=== PATIENT | female | born 1945 | race Caucasian/White ===

== ENCOUNTER 2016-12-05 18:41 | Emergency (ER) | payer OTHER, MEDICARE ==
[~2016-12-05 18:41] MED LIST: ADVAIR DISKU1 INH; ALPRAZOLAM0.25 MG PO; ASPIRIN325 MG PO; CALCIUM PO; CARVEDILOL12.5 MG PO; CARVEDILOL25 MG PO; CEFUROXIME AXE500 MG PO; CITALOPRAM HYDR40 MG PO; CYMBALTA60 MG PO; DIGOXIN0.125 MG PO; DILTIAZEM HCL180 M1 PO; ESTRADIOL0.5 MG PO; FLONASE AL50 MCG/ACT; FUROSEMIDE20 MG PO; HYDROXYZINE PAM25 MG PO; IPRATROPIUM BR0.02 % IN; MEDROXYPROGESTER5 MG PO; NAPROXEN250 MG PO; NORCO1 TA1 PO; OXYCODONE HCL5 MG PO; PERCOCET1 TA1 PO; PREDNISONE10 MG PO; PREDNISONE20 MG PO; PRILOSEC20 MG PO; PRINIVIL5 MG PO; PROAIR HFA IN; SIMVASTATIN40 MG PO; TRAMADOL HCL50 MG PO; VENTOLIN HFA IN; XARELTO10 MG PO; ZITHROMAX250 MG PO
--- NOTE | 2016-12-05 19:06 | ED CLINICAL REPORT ---
Clinical Report - Physicians/Mid Levels [facility] [address] [place] [address] 12/05/2016 18:40 Patient: SHANNON PATEL Time Seen: 18:51 Dec 05 2016. Arrived- By private vehicle. Historian- patient. CPT: ER phys charges level 3 (#[id number]). HISTORY OF PRESENT ILLNESS Chief Complaint: DYSPNEA and HISTORY OF CHRONIC OBSTRUCTIVE PULMONARY DISEASE. This started about 4 days RN INTAKE; Patient was told to be seen if she has a change in her sputum. and is still present. The dyspnea is described as moderate and is worsened by walking and exertion and is improved by rest. The patient has had a cough. She has had moderate amounts of green sputum. There has been a change from baseline. No wheezing, chest discomfort, calf pain, foot swelling or dizziness. She has had dyspnea on exertion (chronically). Similar symptoms previously: Several times, as bad. Seen in the ED and office. Diagnosis: chronic obstructive pulmonary disease. Recent medical care: Not recently seen/assessed. REVIEW OF SYSTEMS No muscle aches, eye irritation, nasal discharge, sinus drainage or nausea. No vomiting, abdominal pain, diarrhea, black stools or fainting episodes. No difficulty with urination, excessive urination, skin rash, enlarged lymph nodes or joint pain. The patient has had a mild sore throat (Transient). All systems otherwise negative, except as recorded above. PAST HISTORY Anxiety Reaction. Medication Refill. Bronchitis. Atrial Fibrillation. Hyperlipidemia. COPD - Chronic Obstructive Pulmonary Disease. Hypertension. Immunizations. --18:51 Honey Bailey R.N. ADDITIONAL SURGERIES: Dilatation & Curettage. Tonsillectomy. Chronic obstructive pulmonary disease. Medications: Azithromycin Oral. Advair Diskus Inhalation. Carvedilol Phosphate ER Oral. Citalopram Hydrobromide Oral. Digoxin Oral. DULoxetine HCl Oral. Estradiol Oral. HydrOXYzine HCl Oral. Lisinopril Oral. MedroxyPROGESTERone Acetate Oral. Omeprazole Oral. Percocet Oral. Tramadol HCL Oral. Ventolin HFA Inhalation. Xanax Oral. Xarelto Oral. Allergies: Shellfish-derived Products. Vicodin. SOCIAL HISTORY Former smoker. No alcohol use or drug use. ADDITIONAL NOTES The nursing notes have been reviewed. PHYSICAL EXAM Vital Signs: 12/05/2016 18:46 BP: 98/69. HR: 60. RR: 20. O2 saturation: 98%. Temp: 98.9 F. Pain level now: 0/10. Appearance: Alert. Eyes: Eyes normal inspection. ENT: Pharynx normal. Neck: Normal inspection. No jugular venous distention. CVS: Normal heart rate and rhythm. Heart sounds normal. Pulses normal. Respiratory: No respiratory distress. Moderately decreased air movement diffusely over both lungs. Abdomen: Soft and nontender. Back: Normal inspection. Skin: Skin warm. Normal skin color. No rash. Extremities: Extremities exhibit normal ROM. No lower extremity edema. Neuro: Oriented X 3. No motor deficit. No sensory deficit. Reflexes normal. PROGRESS AND PROCEDURES Course of Care: 19:01 12/05/16. Patient doesn't have any active wheezing. She is on prophylactic erythromycin and has developed green sputum on this regimen. Patient stable for discharge will change antibiotic and add steroids. She will follow up in a few days to evaluate her respiratory status. Patient/family counseled. Disposition: Discharged. Condition: stable. CLINICAL IMPRESSION Acute exacerbation of COPD. INSTRUCTIONS Warnings: Further evaluation is necessary. GENERAL WARNINGS: Return or contact your physician immediately if your condition worsens or changes unexpectedly, if not improving as expected, or if other problems arise. Your Current Medications: CONTINUE TAKING THE FOLLOWING MEDICATIONS: Advair Diskus Inhalation. Azithromycin Oral. Carvedilol Phosphate ER Oral. Citalopram Hydrobromide Oral. Digoxin Oral. DULoxetine HCl Oral. Estradiol Oral. HydrOXYzine HCl Oral. Lisinopril Oral. MedroxyPROGESTERone Acetate Oral. Omeprazole Oral. Percocet Oral. Tramadol HCL Oral. Ventolin HFA Inhalation. Xanax Oral. Xarelto Oral. Prescription Medications: Augmentin 875 mg: take 1 tablet orally every 12 hours for 7 days. Dispense fourteen (14). No refills. Substitution is permissible. Prednisone 30 mg a day for 3 days. Understanding of the discharge instructions verbalized by patient. Follow-up with: Porfirio Nguyen MD, [facility], , [facility], [address] [address], [place] [address] Follow up in three days. Call for an appointment. (Electronically signed by Cam Chopra MD 12/06/2016 15:50)
--- NOTE | 2016-12-05 19:06 | ED NURSING NOTES ---
Clinical Report - Nurses [facility] [address] [place] [address] 12/05/2016 18:40 Patient: SHANNON PATEL TRIAGE Acuity: LEVEL 3. Chief Complaint: SHORTNESS OF BREATH and COUGH. Alert. No acute distress. SEPSIS SCREEN: Sepsis Screen. Negative (no infection suspected/documented). --18:55 Honey Bailey R.N. 18:46 12/05/16. BP: 98/69. HR: 60. RR: 20. O2 saturation: 98% on room air. Temp: 98.9 F. Pain level now: 0/10. --18:55 Honey Bailey R.N. Weight: 86.1 kg stated. Height/Length: 62 inches Per Patient. BMI: 34.8. --18:51 Honey Bailey R.N. Medications Advair Diskus Inhalation. Carvedilol Phosphate ER Oral. Citalopram Hydrobromide Oral. Digoxin Oral. DULoxetine HCl Oral. Estradiol Oral. HydrOXYzine HCl Oral. Lisinopril Oral. MedroxyPROGESTERone Acetate Oral. Omeprazole Oral. Percocet Oral. Tramadol HCL Oral. Ventolin HFA Inhalation. Xanax Oral. Xarelto Oral. --18:51 Honey Bailey R.N. Azithromycin Oral. --18:55 Honey Bailey R.N. Medication/allergy information source: the patient. --18:55 Honey Bailey R.N. Allergies Vicodin. --18:51 Honey Bailey R.N. Shellfish-derived Products. --18:51 Honey Bailey R.N. History Arrived by private vehicle, and accompanied by daughter. Primary physician (alcon). Onset. (4 days ago). SOCIAL HX: Former smoker, end date 2006. No alcohol use or drug use. NUTRITIONAL RISK ASSESSMENT: The nutritional risk assessment revealed no deficiencies. FUNCTIONAL ASSESSMENT: Functional assessment: no impairments noted. LEARNING NEEDS ASSESSMENT: The learning needs assessment revealed no barriers. FALL RISK ASSESSMENT: Fall risk assessment completed. Risk factors identified include patient age greater than 65 years. Fall interventions initiated. Patient placed on stretcher. Side rails up x1. Brakes on Bed in low position. Patient visible from nurses' station. Call light in reach of patient. SKIN INTEGRITY ASSESSMENT: Skin integrity risk assessment completed. No skin integrity risk identified. --18:55 Honey Bailey R.N. PROBLEMS: Anxiety Reaction. Medication Refill. Bronchitis. Atrial Fibrillation. Hyperlipidemia. COPD - Chronic Obstructive Pulmonary Disease. Hypertension. Immunizations. --18:51 Honey Bailey R.N. ADDITIONAL SURGERIES: Dilatation & Curettage. Tonsillectomy. --18:51 Honey Bailey R.N. Assessment GENERAL / NEURO / PSYCH: Alert. Oriented X 4. Appears in no acute distress. [place] Coma Scale: 15- eyes open spontaneously (4); best verbal response- oriented x 4 (5); best motor response- obeys commands (6). Patient appears calm and cooperative. RESPIRATORY: Respirations not labored. CVS: Capillary refill less than 2 seconds. GI / : Abdomen nontender. SKIN: Mucous membranes are pink. Skin is warm and dry. --18:55 Honey Bailey R.N. Interventions ID band on patient. To treatment room. --18:55 Honey Bailey R.N. PHYSICAL ASSESSMENT 18:55 12/05/16. To room via wheelchair. GENERAL / NEURO / PSYCH: Alert. Oriented X 4. Appears in no acute distress. HEENT: Mucous membranes are pink. RESPIRATORY: No respiratory distress. Respirations not labored. CVS: Capillary refill less than 2 seconds. GI / : Abdomen soft and nontender. SKIN: Skin is warm and dry. Normal skin turgor. --18:55 Honey Bailey R.N. NURSING PROGRESS NOTES 18:56 12/05/16. Patient gowned. Two patient identifiers checked. Call light placed in reach. Side rails up x 2. Bed placed in lowest position. Brakes of bed on. Patient ready for evaluation- chart flagged. ED physician at the patient's bedside. --18:56 Honey Bailey R.N. 19:24 12/05/2016 Augmentin (Amoxicillin-Pot Clavulanate) PO 875 mg given. Allergies verified and confirmed 5 rights. --19:24 Honey Bailey R.N. DISPOSITION / DISCHARGE Departure time: 19:15 Dec 05 2016. Condition at departure: improved and stable. No learning barriers present. Discharge instructions provided and reviewed with the patient. Reviewed medication(s) side effects, precautions and dosing information. Prescription(s) given to the patient. Patient verbalized understanding. Written instructions provided in [place]. The patient was discharged by the physician. She was discharged home and accompanied by family. She left the Emergency Department ambulatory and via private vehicle. Family member driving. --19:30 Honey Bailey R.N. 19:29 12/05/16. BP: 113/77. HR: 88. RR: 18. O2 saturation: 95% on room air. Temp: 98.9 F (oral). Pain level now: 0/10. --19:30 Honey Bailey R.N. Locked/Released at 12/05/2016 19:30 by Honey Bailey R.N.
--- NOTE | 2016-12-05 19:06 | ED CLINICAL REPORT ---
Clinical Report - Physicians/Mid Levels [facility] [address] [place] [address] 12/05/2016 18:40 Patient: SHANNON PATEL Time Seen: 18:51 Dec 05 2016. Arrived- By private vehicle. Historian- patient. CPT: ER phys charges level 3 (#[id number]). HISTORY OF PRESENT ILLNESS Chief Complaint: DYSPNEA and HISTORY OF CHRONIC OBSTRUCTIVE PULMONARY DISEASE. 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 and is still present. The dyspnea is described as moderate and is worsened by walking and exertion and is improved by rest. The patient has had a cough. She has had moderate amounts of green sputum. There has been a change from baseline. No wheezing, chest discomfort, calf pain, foot swelling or dizziness. She has had dyspnea on exertion (chronically). Similar symptoms previously: Several times, as bad. Seen in the ED and office. Diagnosis: chronic obstructive pulmonary disease. Recent medical care: Not recently seen/assessed. REVIEW OF SYSTEMS No muscle aches, eye irritation, nasal discharge, sinus drainage or nausea. No vomiting, abdominal pain, diarrhea, black stools or fainting episodes. No difficulty with urination, excessive urination, skin rash, enlarged lymph nodes or joint pain. The patient has had a mild sore throat (Transient). All systems otherwise negative, except as recorded above. PAST HISTORY Anxiety Reaction. Medication Refill. Bronchitis. Atrial Fibrillation. Hyperlipidemia. COPD - Chronic Obstructive Pulmonary Disease. Hypertension. Immunizations. --18:51 Honey Bailey R.N. ADDITIONAL SURGERIES: Dilatation & Curettage. Tonsillectomy. Chronic obstructive pulmonary disease. Medications: Azithromycin Oral. Advair Diskus Inhalation. Carvedilol Phosphate ER Oral. Citalopram Hydrobromide Oral. Digoxin Oral. DULoxetine HCl Oral. Estradiol Oral. HydrOXYzine HCl Oral. Lisinopril Oral. MedroxyPROGESTERone Acetate Oral. Omeprazole Oral. Percocet Oral. Tramadol HCL Oral. Ventolin HFA Inhalation. Xanax Oral. Xarelto Oral. Allergies: Shellfish-derived Products. Vicodin. SOCIAL HISTORY Former smoker. No alcohol use or drug use. ADDITIONAL NOTES The nursing notes have been reviewed. PHYSICAL EXAM Vital Signs: 12/05/2016 18:46 BP: 98/69. HR: 60. RR: 20. O2 saturation: 98%. Temp: 98.9 F. Pain level now: 0/10. Appearance: Alert. Eyes: Eyes normal inspection. ENT: Pharynx normal. Neck: Normal inspection. No jugular venous distention. CVS: Normal heart rate and rhythm. Heart sounds normal. Pulses normal. Respiratory: No respiratory distress. Moderately decreased air movement diffusely over both lungs. Abdomen: Soft and nontender. Back: Normal inspection. Skin: Skin warm. Normal skin color. No rash. Extremities: Extremities exhibit normal ROM. No lower extremity edema. Neuro: Oriented X 3. No motor deficit. No sensory deficit. Reflexes normal. PROGRESS AND PROCEDURES Course of Care: 19:01 12/05/16. Patient doesn't have any active wheezing. She is on prophylactic erythromycin and has developed green sputum on this regimen. Patient stable for discharge will change antibiotic and add steroids. She will follow up in a few days to evaluate her respiratory status. Patient/family counseled. Disposition: Discharged. Condition: stable. CLINICAL IMPRESSION Acute exacerbation of COPD. INSTRUCTIONS Warnings: Further evaluation is necessary. GENERAL WARNINGS: Return or contact your physician immediately if your condition worsens or changes unexpectedly, if not improving as expected, or if other problems arise. Your Current Medications: CONTINUE TAKING THE FOLLOWING MEDICATIONS: Advair Diskus Inhalation. Azithromycin Oral. Carvedilol Phosphate ER Oral. Citalopram Hydrobromide Oral. Digoxin Oral. DULoxetine HCl Oral. Estradiol Oral. HydrOXYzine HCl Oral. Lisinopril Oral. MedroxyPROGESTERone Acetate Oral. Omeprazole Oral. Percocet Oral. Tramadol HCL Oral. Ventolin HFA Inhalation. Xanax Oral. Xarelto Oral. Prescription Medications: Augmentin 875 mg: take 1 tablet orally every 12 hours for 7 days. Dispense fourteen (14). No refills. Substitution is permissible. Prednisone 30 mg a day for 3 days. Understanding of the discharge instructions verbalized by patient. Follow-up with: Porfirio Nguyen MD, [facility], , [facility], [address], [place] [address] Follow up in three days. Call for an appointment. (Electronically signed by Cma Chopra MD 12/06/2016 15:50)
--- NOTE | 2016-12-06 15:50 | ED ORDER SUMMARY ---
..... Patient: SHANNON PATEL OrderSheet [facility] VisitID: [id number] [address] [place] [address] 71y, F Registration Date/Time: 12/05/2016 ORDER SHEET Weight: 86.1 kg (stated) Allergies: Vicodin, Shellfish-derived Products GENERAL ORDERS: MEDICATION ORDERS: Augmentin PO 875 mg (NOW) (19:12 12/05/2016 Rebel TAPIA) (Ack 19:15 MWinterer R.N.) (19:24 MWinterer R.N.) IV FLUIDS: ORDER SHEET NOTES: [Electronically signed by Honey Bailey R.N. (19:30 12/05/2016)] [Electronically signed by Cam Chopra MD (15:50 12/06/2016)] [Electronically locked/signed by Honey Bailey R.N. (19:30 12/05/2016)]
--- NOTE | 2016-12-06 15:50 | ED MAR SUMMARY ---
..... Medication Administration Record [address] [place] [address] Patient: SHANNON PATEL Visit ID: [id number] 71y, F Weight: 86.1 kg Height/Length: 62 in BMI: 34.8 ALLERGIES: Shellfish-derived Products, Vicodin Given 19:24 12/05/2016 Honey Bailey R.N. Medication Administered: AUGMENTIN [PO] (AMOXICILLIN-POT CLAVULANATE), Dose: 875 mg PO. Medication Ordered: Augmentin PO 875 mg (NOW).
--- NOTE | 2016-12-06 15:50 | ED DISCHARGE INSTRUCTIONS ---
Patient: SHANNON PATEL General Instructions [facility] VisitID: [id number] [place] [address] 71y, F Registration Date/Time: 12/05/2016 Acute exacerbation of COPD. INSTRUCTIONS Warnings: Further evaluation is necessary. GENERAL WARNINGS: Return or contact your physician immediately if your condition worsens or changes unexpectedly, if not improving as expected, or if other problems arise. Your Current Medications: CONTINUE TAKING THE FOLLOWING MEDICATIONS: Advair Diskus Inhalation. Azithromycin Oral. Carvedilol Phosphate ER Oral. Citalopram Hydrobromide Oral. Digoxin Oral. DULoxetine HCl Oral. Estradiol Oral. HydrOXYzine HCl Oral. Lisinopril Oral. MedroxyPROGESTERone Acetate Oral. Omeprazole Oral. Percocet Oral. Tramadol HCL Oral. Ventolin HFA Inhalation. Xanax Oral. Xarelto Oral. Prescription Medications: Augmentin 875 mg: take 1 tablet orally every 12 hours for 7 days. Dispense fourteen (14). No refills. Substitution is permissible. Prednisone 30 mg a day for 3 days. Understanding of the discharge instructions verbalized by patient. Follow-up with: Porfirio Nguyen MD, [facility], , [facility], [address] [place] [address] Follow up in three days. Call for an appointment. ADDITIONAL INFORMATION COPD Flare Both emphysema and chronic bronchitis are forms of chronic obstructive pulmonary disease (COPD). It is most often caused by many years of smoking tobacco. Many things can make your lung disease suddenly get worse. These causes include the common cold, pneumonia, acute bronchitis, missing doses of your regular breathing medicines, or being around smoke, dust, or other air pollutants. A COPD flare may last 7 to 14 days. Your doctor may prescribe medicineto relax your airways and prevent wheezing. Your doctor may also prescribe antibiotics if he or she thinks you havea bacterial infection. Prednisone can helpease inflammation in a severe attack. Home care Here are things you can do at home: Drink lots of water or other fluids (at least 10 glasses a day) during an attack. This will loosen lung secretions and make it easier to breathe. If you have heart or kidney disease, check with your doctor before you drink extra amounts of fluids. Take prescribed medicine exactly at the times advised. If you have a hand-held inhaler or aerosol breathing medicine, don't use it more than once every 4 hours, unless your doctor tells you to. If you were givenan antibiotic or prednisone, take all of the medicine even if you are feeling better after a few days. Don't smoke. Avoid being aroundthe smoke of others. If you were given an inhaler, use it exactly as directed. If you need to use it more often than prescribed, your condition may be getting worse. Call your doctor. Follow-up care Follow up with your health care provider.If you are 65 or older or have chronic asthma or COPD, you should get a single dose of the pneumococcal vaccine and aflu shot each year. You may need a second dose of the pneumococcal vaccine if you had the first dose at a younger age. Your health care provider will let you know if you need a second dose. For all other people, the usual dose for the pneumococcal vaccine is 1 or 2 shots. Yourprovider can discuss this with you. When to seek medical care Get prompt medical attention ifany of these occur: Increased wheezing or shortness of breath Need to use your inhalers more often than usual without relief Fever of 100.4F(38C) or higher, or as directed by your health care provider Coughing up lots of dark-colored or bloody sputum (mucus) Chest pain with each breath You do not start to improve within 24 hours You have been given the following additional information: COPD Flare (Electronically signed by Cam Chopra MD 12/06/2016 15:50)
--- NOTE | 2016-12-06 15:50 | ED MED RECONCILIATION SUMMARY ---
Patient: SHANNON PATEL Medication Reconciliation Report [facility] VisitID: [id number] [place] [address] 71y, F Registration Date/Time: 12/05/2016 Weight: 86.1 kg Height/Length: 62 in. BMI: 34.8 ALLERGIES: Shellfish-derived Products, Vicodin The patient's Home Medications are listed below: CONTINUE TAKING THE FOLLOWING MEDICATIONS: Advair Diskus Inhalation Azithromycin Oral Carvedilol Phosphate ER Oral Citalopram Hydrobromide Oral Digoxin Oral DULoxetine HCl Oral Estradiol Oral HydrOXYzine HCl Oral Lisinopril Oral MedroxyPROGESTERone Acetate Oral Omeprazole Oral Percocet Oral Tramadol HCL Oral Ventolin HFA Inhalation Xanax Oral Xarelto Oral The source(s) of the original Home Medication information: patient The following Medications were given to the patient in the Emergency Department: Augmentin [PO] PO 875 mg, administered: 12/05/2016 7:24:00 PM The following Medications were prescribed to the patient: Prednisone 30 mg a day for 3 days. -- Cam Chopra MD Augmentin 875 mg: take 1 tablet orally every 12 hours for 7 days. Dispense fourteen (14). No refills. Substitution is permissible. -- Cam Chopra MD
--- NOTE | 2016-12-06 15:50 | ED DISCHARGE INSTRUCTIONS ---
Patient: SHANNON PATEL General Instructions [facility] VisitID: [id number] [place] [address] 71y, F Registration Date/Time: 12/05/2016 Acute exacerbation of COPD. INSTRUCTIONS Warnings: Further evaluation is necessary. GENERAL WARNINGS: Return or contact your physician immediately if your condition worsens or changes unexpectedly, if not improving as expected, or if other problems arise. Your Current Medications: CONTINUE TAKING THE FOLLOWING MEDICATIONS: Advair Diskus Inhalation. Azithromycin Oral. Carvedilol Phosphate ER Oral. Citalopram Hydrobromide Oral. Digoxin Oral. DULoxetine HCl Oral. Estradiol Oral. HydrOXYzine HCl Oral. Lisinopril Oral. MedroxyPROGESTERone Acetate Oral. Omeprazole Oral. Percocet Oral. Tramadol HCL Oral. Ventolin HFA Inhalation. Xanax Oral. Xarelto Oral. Prescription Medications: Augmentin 875 mg: take 1 tablet orally every 12 hours for 7 days. Dispense fourteen (14). No refills. Substitution is permissible. Prednisone 30 mg a day for 3 days. Understanding of the discharge instructions verbalized by patient. Follow-up with: Porfirio Nguyen MD, [facility], , [facility], [address] [place] [address] Follow up in three days. Call for an appointment. ADDITIONAL INFORMATION COPD Flare Both emphysema and chronic bronchitis are forms of chronic obstructive pulmonary disease (COPD). It is most often caused by many years of smoking tobacco. Many things can make your lung disease suddenly get worse. These causes include the common cold, pneumonia, acute bronchitis, missing doses of your regular breathing medicines, or being around smoke, dust, or other air pollutants. A COPD flare may last 7 to 14 days. Your doctor may prescribe medicineto relax your airways and prevent wheezing. Your doctor may also prescribe antibiotics if he or she thinks you havea bacterial infection. Prednisone can helpease inflammation in a severe attack. Home care Here are things you can do at home: Drink lots of water or other fluids (at least 10 glasses a day) during an attack. This will loosen lung secretions and make it easier to breathe. If you have heart or kidney disease, check with your doctor before you drink extra amounts of fluids. Take prescribed medicine exactly at the times advised. If you have a hand-held inhaler or aerosol breathing medicine, don't use it more than once every 4 hours, unless your doctor tells you to. If you were givenan antibiotic or prednisone, take all of the medicine even if you are feeling better after a few days. Don't smoke. Avoid being aroundthe smoke of others. If you were given an inhaler, use it exactly as directed. If you need to use it more often than prescribed, your condition may be getting worse. Call your doctor. Follow-up care Follow up with your health care provider.If you are 65 or older or have chronic asthma or COPD, you should get a single dose of the pneumococcal vaccine and aflu shot each year. You may need a second dose of the pneumococcal vaccine if you had the first dose at a younger age. Your health care provider will let you know if you need a second dose. For all other people, the usual dose for the pneumococcal vaccine is 1 or 2 shots. Yourprovider can discuss this with you. When to seek medical care Get prompt medical attention ifany of these occur: Increased wheezing or shortness of breath Need to use your inhalers more often than usual without relief Fever of 100.4F(38C) or higher, or as directed by your health care provider Coughing up lots of dark-colored or bloody sputum (mucus) Chest pain with each breath You do not start to improve within 24 hours You have been given the following additional information: COPD Flare (Electronically signed by Cam Chopra MD 12/06/2016 15:50)
--- NOTE | 2016-12-06 15:50 | ED MED RECONCILIATION SUMMARY ---
Patient: SHANNON PATEL Medication Reconciliation Report [facility] VisitID: [id number] [place] [address] 71y, F Registration Date/Time: 12/05/2016 Weight: 86.1 kg Height/Length: 62 in. BMI: 34.8 ALLERGIES: Shellfish-derived Products, Vicodin The patient's Home Medications are listed below: CONTINUE TAKING THE FOLLOWING MEDICATIONS: Advair Diskus Inhalation Azithromycin Oral Carvedilol Phosphate ER Oral Citalopram Hydrobromide Oral Digoxin Oral DULoxetine HCl Oral Estradiol Oral HydrOXYzine HCl Oral Lisinopril Oral MedroxyPROGESTERone Acetate Oral Omeprazole Oral Percocet Oral Tramadol HCL Oral Ventolin HFA Inhalation Xanax Oral Xarelto Oral The source(s) of the original Home Medication information: patient The following Medications were given to the patient in the Emergency Department: Augmentin [PO] PO 875 mg, administered: 12/05/2016 7:24:00 PM The following Medications were prescribed to the patient: Prednisone 30 mg a day for 3 days. -- Cam Chopra MD Augmentin 875 mg: take 1 tablet orally every 12 hours for 7 days. Dispense fourteen (14). No refills. Substitution is permissible. -- Cam Chopra MD
--- NOTE | 2016-12-06 15:50 | ED MAR SUMMARY ---
..... Medication Administration Record [address] [place] [address] Patient: SHANNON PATEL Visit ID: [id number] 71y, F Weight: 86.1 kg Height/Length: 62 in BMI: 34.8 ALLERGIES: Shellfish-derived Products, Vicodin Given 19:24 12/05/2016 Honey Bailey R.N. Medication Administered: AUGMENTIN [PO] (AMOXICILLIN-POT CLAVULANATE), Dose: 875 mg PO. Medication Ordered: Augmentin PO 875 mg (NOW).
--- NOTE | 2016-12-06 15:50 | ED ORDER SUMMARY ---
..... Patient: SHANNON PATEL OrderSheet [facility] VisitID: [id number] [address] [place] [address] 71y, F Registration Date/Time: 12/05/2016 ORDER SHEET Weight: 86.1 kg (stated) Allergies: Vicodin, Shellfish-derived Products GENERAL ORDERS: MEDICATION ORDERS: Augmentin PO 875 mg (NOW) (19:12 12/05/2016 Rebel TAPIA) (Ack 19:15 MWinterer R.N.) (19:24 MWinterer R.N.) IV FLUIDS: ORDER SHEET NOTES: [Electronically signed by Honey Bailey R.N. (19:30 12/05/2016)] [Electronically signed by Cma Chopra MD (15:50 12/06/2016)] [Electronically locked/signed by Honey Bailey R.N. (19:30 12/05/2016)]
== END 2016-12-05 19:15 | disposition home or self-care (01) ==
LOC: ED SRH 18:41
DX: J44.1 Chronic obstructive pulmonary disease with (acute) exacerbation (principal); I10 Essential (primary) hypertension; E78.5 Hyperlipidemia, unspecified; Z79.51 Long term (current) use of inhaled steroids; Z79.2 Long term (current) use of antibiotics; Z79.891 Long term (current) use of opiate analgesic; Z88.5 Allergy status to narcotic agent; Z91.013 Allergy to seafood

== ENCOUNTER 2016-12-20 11:30 | Emergency (ER) | payer OTHER, MEDICARE ==
--- NOTE | 2016-12-20 12:30 | DIAGNOSTIC IMAGING REPORT ---
PROCEDURE: XR CHEST 2 VIEW INDICATION: CONGESTION TECHNIQUE: PA and lateral views. COMPARISON: Chest 10/30/2016 and 01/08/2015 FINDINGS: New left lower lobe infiltrate. Cardiomegaly. Pulmonary vasculature is normal. IMPRESSION: 1. New left lower lobe infiltrate.
--- NOTE | 2016-12-20 14:49 | ED ORDER SUMMARY ---
..... Patient: SHANNON PATEL OrderSheet [facility] VisitID: [id number] [place] [address] 71y, F Registration Date/Time: 12/20/2016 ORDER SHEET Weight: 84.8 kg (stated) Allergies: Shellfish-derived Products, Vicodin, Beta Adrenergic Blockers, Hydrocodone GENERAL ORDERS: Rapid Influenza Screen (Nasal Pharyngeal) (nasal) Urgent (11:55 12/20/2016 JBoardley R.N. per protocol) (Ack 11:57 LNations ER Tech1) (12:00 JBoardley R.N.) RT Evaluation Stat (11:56 12/20/2016 JBoardley R.N. per protocol) (Ack 11:57 LNations ER Tech1) (12:04 RMcCarson) Chest 2V Urgent (12:09 12/20/2016 JBoardley R.N. per protocol) (12:16 LNations ER Tech1) CBC w Diff Urgent (12:51 12/20/2016 Brandt TAPIA) (Ack 12:58 LNations ER Tech1) (13:30 EHassan R.N.) CMP Urgent (12:51 12/20/2016 Brandt TAPIA) (Ack 12:58 LNations ER Tech1) (13:30 EHassan R.N.) PCT (Procalcitonin) Urgent (12:51 12/20/2016 Brandt TAPIA) (Ack 12:58 LNations ER Tech1) (13:30 EHassan R.N.) MEDICATION ORDERS: DuoNeb Neb Tx 1 unit dose (NOW) (12:55 12/20/2016 Brandt TAPIA) (13:04 RMcCarson) IV FLUIDS: IV Saline Lock (12:51 12/20/2016 Brandt TAPIA) (Ack 13:09 JBoardley R.N.) (13:31 EHassan R.N.) Solu-MEDROL IV 125 mg (NOW) (12:55 12/20/2016 Brandt TAPIA) (Ack 13:09 Aleshia R.N.) (13:31 EHassan R.N.) ORDER SHEET NOTES: [Electronically signed by Boardley, Pierre R.N. (12/20/2016)] [Electronically signed by Aiden Cordero MD (12/20/2016)] [Electronically locked/signed by Pierre Anne R.N. (12/20/2016)]
--- NOTE | 2016-12-20 14:49 | ED CLINICAL REPORT ---
Clinical Report - Physicians/Mid Levels [facility] [address] [place] [address] 12/20/2016 11:32 Patient: SHANNON PATEL Time Seen: 12:22. Arrived- By private vehicle. Historian- patient. HISTORY OF PRESENT ILLNESS Chief Complaint: COUGH. This started about 2 1/2 weeks ago and is still present. It was gradual in onset. The illness is described as moderate. The patient has had a cough. She has had scant amounts of thick, green sputum. She has had mild difficulty breathing (chronically - she attributes this to her COPD). No chest discomfort or pain, fever, muscle aches or chills. Additional history - No known contact with a sick individual. Similar symptoms previously: Recent medical care: The patient was seen recently at this facility and another facility in a clinic. REVIEW OF SYSTEMS No chills, fever, sweats, abdominal pain or constipation. No diarrhea, nausea, vomiting or urinary problems. All systems otherwise negative, except as recorded above. PAST HISTORY PCP - Wendy. SOCIAL HISTORY Former smoker, end date 2006. FAMILY HISTORY Denies family medical history. ADDITIONAL NOTES The nursing notes have been reviewed. PHYSICAL EXAM Vital Signs: 12/20/2016 11:40 BP: 141/95. HR: 99. RR: 16. O2 saturation: 93%. Temp: 97.7 F. Have been reviewed. Appearance: Alert. Eyes: Pupils equal, round and reactive to light. ENT: Nose normal. Pharynx normal. Uvula midline. Neck: Normal inspection. Neck supple. CVS: Normal heart rate and rhythm. Heart sounds normal. Respiratory: Mild bilateral rhonchi present in the bases. Abdomen: Soft and nontender. No organomegaly. Back: Normal inspection. No CVA tenderness. Skin: Skin warm and dry. Normal skin color. Normal skin turgor. Extremities: Extremities exhibit normal ROM. No calf tenderness. No lower extremity edema. LABS, X-RAYS, AND EKG Chest X-ray: (IMPRESSION: 1. New left lower lobe infiltrate.). The X-rays were interpreted by the radiologist and contemporaneously by me. Laboratory Tests: CBC w Diff: (MIS: 12/20/2016 13:22) ( [facility] 12/20/2016 13:44) Final results Test Result Flag Units (Reference) WHITE BLOOD COUNT 8.0 K/uL (4.5-11.5) RED BLOOD COUNT 4.54 M/uL (4.00-5.20) HEMOGLOBIN 13.4 gm/dL (12.0-16.0) HEMATOCRIT 41.2 % (36.0-46.0) MEAN CELL VOLUME 91 fL (80-100) MEAN CORPUSCULAR HGB 30 pg (26-34) MEAN CORPUSCULAR HGB CONC 33 g/dL (31-37) RED CELL DISTRIBUTION WIDTH 13.6 % (11.6-14.8) PLATELET COUNT 286 K/uL (150-400) NEUTROPHIL % 64.5 % (50-75) LYMPH % 22.8 L % (25-40) MONO % 9.4 % (3-14) EOSINOPHIL % 2.8 % (0-4) BASOPHIL % 0.5 % (0-2) [id number]: (MIS: 12/20/2016 13:22) ( [facility] 12/20/2016 14:15) Final results Test Result Flag Units (Reference) PROCALCITONIN <0.5 ng/mL (0-0.5) PCT Concentration: Interpretation : Risk/option for action PCT <=0.5 ng/mL : Systemic : Low risk forinfection(sepsis): progression to severeis not likely. : systemic infection.Local bacterial : CAUTION-PCT levelsinfection is : below 0.5 ng/mL do notpossible. : exclude an infection,because localizedinfections (withoutsystemic signs) may beassociated with suchlow levels. If PCT ismeasured very earlyafter a bacterialchallenge (usually <6hours), these valuesmay still be low. Inthis case PCT shouldbe re-assessed 6-24hours later. PCT >0.5 and : Systemic infection: Moderate risk for<= 2 ng/mL : (sepsis) is : progression to severepossible, but : systemic infection.other conditions : The patient should beare known to : closely monitoredelevate PCT. : both clinically andby re-assessing PCTwithin 6-24 hours. PCT > 2 ng/mL : Systemic infection: High risk for(sepsis) is likely: progression to severeunless other : systemic infection.causes are known. : PCT >= 10 ng/mL : Important systemic: High likelihood ofinflammatory : severe sepsis orresponse, almost : septic shock.exclusively due to:severe bacterial :sepsis or septic :shock. : CMP: (MIS: 12/20/2016 13:22) ( MsgRcvd 12/20/2016 13:57) Final results Test Result Flag Units (Reference) GLUCOSE 99 mg/dL (70-110) BUN 9 mg/dL (7-18) CREATININE 0.7 mg/dL (0.6-1.3) Estimated GFR >60 mL/min Estimated GFR- >60 mL/min Note: Persistent reduction over 3 months in eGFR<60 mL/min/1.73 m2 defines CKD. Patients with eGFR values>=60 mL/min/1.73 m2 may also have CKD if evidence ofpersistent proteinuria. Additional information may be foundat www.kidney.org. SODIUM 138 mmol/L (136-145) POTASSIUM 4.0 mmol/L (3.5-5.1) CHLORIDE 101 mmol/L (98-107) CARBON DIOXIDE 29 mmol/L (21-32) CALCIUM 9.2 mg/dL (8.5-10.1) TOTAL PROTEIN 7.1 g/dL (6.4-8.2) ALBUMIN 3.6 g/dL (3.3-5.0) BILIRUBIN, TOTAL 0.6 mg/dL (0.0-1.0) ALKALINE PHOSPHATASE 59 U/L (46-116) AST (SGOT) 18 U/L (15-37) ALT (SGPT) 21 U/L (12-78) Rapid Influenza Screen: (MIS: 12/20/2016 11:50) ( MsgRcvd 12/20/2016 12:15) Final results SPECIMEN DESCRIPTION: NASAL Test Result Flag Units (Reference) RAPID INFLUENZA SCREEN DATE: 12/20/16 INFLUENZA A: NEGATIVE SCREEN FOR INFLUENZA A INFLUENZA B: NEGATIVE SCREEN FOR INFLUENZA B . PROGRESS AND PROCEDURES Patient/family counseled. Old medical records ordered. Disposition: Discharged. Condition: stable. CLINICAL IMPRESSION COPD. Pneumonia. Atypical presentation with a delayed diagnosis. INSTRUCTIONS Drink plenty of fluids. Warnings: Further evaluation is necessary. GENERAL WARNINGS: Return or contact your physician immediately if your condition worsens or changes unexpectedly, if not improving as expected, or if other problems arise. Prescription Medications: Zithromax 250 mg tablets: take 2 orally today, followed by 1 daily for the next 4 days. No refills. Substitution is permissible. Prednisone 10 mg tablets: take 4 orally every day for 5 days, then 2 every day for 3 days, then 1 every day for 2 days. Dispense twenty-eight (28). No refills. Understanding of the discharge instructions verbalized by patient. Follow-up with: Porfirio Nguyen MD, [facility], , [facility], [address] [facility] [address] [place], [place] [id number] Follow up in five days. Call for the next available appointment. (Electronically signed by Aiden Cordero MD 12/20/2016 19:26)
--- NOTE | 2016-12-20 14:49 | ED ORDER SUMMARY ---
..... Patient: SHANNON PATEL OrderSheet [facility] VisitID: [id number] [place] [address] 71y, F Registration Date/Time: 12/20/2016 ORDER SHEET Weight: 84.8 kg (stated) Allergies: Shellfish-derived Products, Vicodin, Beta Adrenergic Blockers, Hydrocodone GENERAL ORDERS: Rapid Influenza Screen (Nasal Pharyngeal) (nasal) Urgent (11:55 12/20/2016 JBoardley R.N. per protocol) (Ack 11:57 LNations ER Tech1) (12:00 JBoardley R.N.) RT Evaluation Stat (11:56 12/20/2016 JBoardley R.N. per protocol) (Ack 11:57 LNations ER Tech1) (12:04 RMcCarson) Chest 2V Urgent (12:09 12/20/2016 JBoardley R.N. per protocol) (12:16 LNations ER Tech1) CBC w Diff Urgent (12:51 12/20/2016 Brandt TAPIA) (Ack 12:58 LNations ER Tech1) (13:30 EHassan R.N.) CMP Urgent (12:51 12/20/2016 Brandt TAPIA) (Ack 12:58 LNations ER Tech1) (13:30 EHassan R.N.) PCT (Procalcitonin) Urgent (12:51 12/20/2016 Brandt TAPIA) (Ack 12:58 LNations ER Tech1) (13:30 EHassan R.N.) MEDICATION ORDERS: DuoNeb Neb Tx 1 unit dose (NOW) (12:55 12/20/2016 Brandt TAPIA) (13:04 RMcCarson) IV FLUIDS: IV Saline Lock (12:51 12/20/2016 Brandt TAPIA) (Ack 13:09 JBoardley R.N.) (13:31 EHassan R.N.) Solu-MEDROL IV 125 mg (NOW) (12:55 12/20/2016 Brandt TAPIA) (Ack 13:09 Aleshia R.N.) (13:31 EHassan R.N.) ORDER SHEET NOTES: [Electronically signed by Boardley, Pierre R.N. (12/20/2016)] [Electronically signed by Aiden Cordero MD (12/20/2016)] [Electronically locked/signed by Pierre Anne R.N. (12/20/2016)]
--- NOTE | 2016-12-20 14:49 | ED CLINICAL REPORT ---
Clinical Report - Physicians/Mid Levels [facility] [address] [place] [address] 12/20/2016 11:32 Patient: SHANNON PATEL Time Seen: 12:22. Arrived- By private vehicle. Historian- patient. HISTORY OF PRESENT ILLNESS Chief Complaint: COUGH. This started about 2 1/2 weeks ago and is still present. It was gradual in onset. The illness is described as moderate. The patient has had a cough. She has had scant amounts of thick, green sputum. She has had mild difficulty breathing (chronically - she attributes this to her COPD). No chest discomfort or pain, fever, muscle aches or chills. Additional history - No known contact with a sick individual. Similar symptoms previously: Recent medical care: The patient was seen recently at this facility and another facility in a clinic. REVIEW OF SYSTEMS No chills, fever, sweats, abdominal pain or constipation. No diarrhea, nausea, vomiting or urinary problems. All systems otherwise negative, except as recorded above. PAST HISTORY PCP - Wendy. SOCIAL HISTORY Former smoker, end date 2006. FAMILY HISTORY Denies family medical history. ADDITIONAL NOTES The nursing notes have been reviewed. PHYSICAL EXAM Vital Signs: 12/20/2016 11:40 BP: 141/95. HR: 99. RR: 16. O2 saturation: 93%. Temp: 97.7 F. Have been reviewed. Appearance: Alert. Eyes: Pupils equal, round and reactive to light. ENT: Nose normal. Pharynx normal. Uvula midline. Neck: Normal inspection. Neck supple. CVS: Normal heart rate and rhythm. Heart sounds normal. Respiratory: Mild bilateral rhonchi present in the bases. Abdomen: Soft and nontender. No organomegaly. Back: Normal inspection. No CVA tenderness. Skin: Skin warm and dry. Normal skin color. Normal skin turgor. Extremities: Extremities exhibit normal ROM. No calf tenderness. No lower extremity edema. LABS, X-RAYS, AND EKG Chest X-ray: (IMPRESSION: 1. New left lower lobe infiltrate.). The X-rays were interpreted by the radiologist and contemporaneously by me. Laboratory Tests: CBC w Diff: (MIS: 12/20/2016 13:22) ( [facility] 12/[place] 13:44) Final results Test Result Flag Units (Reference) WHITE BLOOD COUNT 8.0 K/uL (4.5-11.5) RED BLOOD COUNT 4.54 M/uL (4.00-5.20) HEMOGLOBIN 13.4 gm/dL (12.0-16.0) HEMATOCRIT 41.2 % (36.0-46.0) MEAN CELL VOLUME 91 fL (80-100) MEAN CORPUSCULAR HGB 30 pg (26-34) MEAN CORPUSCULAR HGB CONC 33 g/dL (31-37) RED CELL DISTRIBUTION WIDTH 13.6 % (11.6-14.8) PLATELET COUNT 286 K/uL (150-400) NEUTROPHIL % 64.5 % (50-75) LYMPH % 22.8 L % (25-40) MONO % 9.4 % (3-14) EOSINOPHIL % 2.8 % (0-4) BASOPHIL % 0.5 % (0-2) [id number]: (MIS: 12/20/2016 13:22) ( [facility] 12/20/2016 14:15) Final results Test Result Flag Units (Reference) PROCALCITONIN <0.5 ng/mL (0-0.5) PCT Concentration: Interpretation : Risk/option for action PCT <=0.5 ng/mL : Systemic : Low risk forinfection(sepsis): progression to severeis not likely. : systemic infection.Local bacterial : CAUTION-PCT levelsinfection is : below 0.5 ng/mL do notpossible. : exclude an infection,because localizedinfections (withoutsystemic signs) may beassociated with suchlow levels. If PCT ismeasured very earlyafter a bacterialchallenge (usually <6hours), these valuesmay still be low. Inthis case PCT shouldbe re-assessed 6-24hours later. PCT >0.5 and : Systemic infection: Moderate risk for<= 2 ng/mL : (sepsis) is : progression to severepossible, but : systemic infection.other conditions : The patient should beare known to : closely monitoredelevate PCT. : both clinically andby re-assessing PCTwithin 6-24 hours. PCT > 2 ng/mL : Systemic infection: High risk for(sepsis) is likely: progression to severeunless other : systemic infection.causes are known. : PCT >= 10 ng/mL : Important systemic: High likelihood ofinflammatory : severe sepsis orresponse, almost : septic shock.exclusively due to:severe bacterial :sepsis or septic :shock. : CMP: (MIS: 12/20/2016 13:22) ( MsgRcvd 12/20/2016 13:57) Final results Test Result Flag Units (Reference) GLUCOSE 99 mg/dL (70-110) BUN 9 mg/dL (7-18) CREATININE 0.7 mg/dL (0.6-1.3) Estimated GFR >60 mL/min Estimated GFR- >60 mL/min Note: Persistent reduction over 3 months in eGFR<60 mL/min/1.73 m2 defines CKD. Patients with eGFR values>=60 mL/min/1.73 m2 may also have CKD if evidence ofpersistent proteinuria. Additional information may be foundat www.kidney.org. SODIUM 138 mmol/L (136-145) POTASSIUM 4.0 mmol/L (3.5-5.1) CHLORIDE 101 mmol/L (98-107) CARBON DIOXIDE 29 mmol/L (21-32) CALCIUM 9.2 mg/dL (8.5-10.1) TOTAL PROTEIN 7.1 g/dL (6.4-8.2) ALBUMIN 3.6 g/dL (3.3-5.0) BILIRUBIN, TOTAL 0.6 mg/dL (0.0-1.0) ALKALINE PHOSPHATASE 59 U/L (46-116) AST (SGOT) 18 U/L (15-37) ALT (SGPT) 21 U/L (12-78) Rapid Influenza Screen: (MIS: 12/20/2016 11:50) ( MsgRcvd 12/20/2016 12:15) Final results SPECIMEN DESCRIPTION: NASAL Test Result Flag Units (Reference) RAPID INFLUENZA SCREEN DATE: 12/20/16 INFLUENZA A: NEGATIVE SCREEN FOR INFLUENZA A INFLUENZA B: NEGATIVE SCREEN FOR INFLUENZA B . PROGRESS AND PROCEDURES Patient/family counseled. Old medical records ordered. Disposition: Discharged. Condition: stable. CLINICAL IMPRESSION COPD. Pneumonia. Atypical presentation with a delayed diagnosis. INSTRUCTIONS Drink plenty of fluids. Warnings: Further evaluation is necessary. GENERAL WARNINGS: Return or contact your physician immediately if your condition worsens or changes unexpectedly, if not improving as expected, or if other problems arise. Prescription Medications: Zithromax 250 mg tablets: take 2 orally today, followed by 1 daily for the next 4 days. No refills. Substitution is permissible. Prednisone 10 mg tablets: take 4 orally every day for 5 days, then 2 every day for 3 days, then 1 every day for 2 days. Dispense twenty-eight (28). No refills. Understanding of the discharge instructions verbalized by patient. Follow-up with: Porfirio Nguyen MD, [facility], , [facility], [address] [facility] [address] [place], [place] [id number] Follow up in five days. Call for the next available appointment. (Electronically signed by Aiden Cordero MD 12/20/2016 19:26)
--- NOTE | 2016-12-20 14:49 | ED NURSING NOTES ---
Clinical Report - Nurses [facility] [address] [place] [address] 12/20/2016 11:32 Patient: SHANNON PATEL TRIAGE Triage time 11:40. Acuity: LEVEL 3. Chief Complaint: COUGH. 11:44 12/20/16. 11:44 12/20/16. Alert. ( Pt was seen at this ER on Nov. Pt was discharged home. Pt followed up with Dr. Nguyen on the NOV 30. Pt states this cough is not going away.). SEPSIS SCREEN: Sepsis Screen: negative. Negative (no infection suspected/documented). Heart rate greater than 90. No acute mental status change. DANIEL COMA SCORE: Daniel Coma Scale: 15- eyes open spontaneously (4); best verbal response- oriented x 4 (5); best motor response- obeys commands (6). --11:48 Pierre Anne R.N. 11:40 12/20/16. BP: 141/95. HR: 99. RR: 16. O2 saturation: 93% on room air. Temp: 97.7 F (oral). --11:48 Pierre Anne R.N. Weight: 84.8 kg stated. Height/Length: 62 inches Per Patient. BMI: 34.2. --11:46 Pierre Anne R.N. Medications Advair Diskus Inhalation (Aerosol Powder Breath Activated 250-50 mcg/dose) 1 puff, 2x a day. Azithromycin Oral (Tablet 500 mg) 1 tablet, Mon, Wed, Fri. Carvedilol Phosphate ER Oral (Capsule Extended Release 24 Hour 10 mg) 25mg, 2xday. Citalopram Hydrobromide Oral (Tablet 40 mg) 1 tablet. Digoxin Oral (Tablet 125 mcg) 1 tablet, daily. DULoxetine HCl Oral (Capsule Delayed Release Particles 60 mg) 1 capsule. Estradiol Oral (Tablet 1 mg) 1 tablet. HydrOXYzine HCl Oral (Tablet 25 mg) 1 tablet, 4x a day as needed. Lisinopril Oral (Tablet 5 mg) 1-1/2 tablets, at bedtime. MedroxyPROGESTERone Acetate Oral (Tablet 2.5 mg) 1 tablet, daily. Omeprazole Oral (Tablet Delayed Release 20 mg) 1 tablet, daily. Percocet Oral (Tablet 5-325 mg) 1-2, 3x a day as needed. Tramadol HCL Oral (Tablet 50 mg) 1-1/2 tablets, 3x a day. Ventolin HFA Inhalation (Aerosol Solution 108 (90 Base) mcg/act) 2 puff, q4hrs. Xanax Oral (Tablet 0.25 mg) 1 tablet, as needed. Xarelto Oral (Tablet 20 mg) 1 tablet. --11:45 Arcelia Tobias R.N. Atorvastatin Calcium Oral (Tablet 20 mg) 1 tablet, daily. --12:31 Arcelia Tobias R.N. Furosemide Oral (Tablet 20 mg) 1 tablet, daily. --12:31 Arcelia Tobias R.N. Fluticasone Furoate Nasal 50mcg, qd. --12:33 Arcelia Tobias R.N. Naproxen Oral (Tablet 500 mg) 1 tablet, 2x a day. --12:33 Arcelia Tobias R.N. The following entry was struck and corrected by Arcelia Tobias R.N., 12:30 (12/20/16) Reason for correction - other(correction). <<STRICKEN ENTRY-- Xanax Oral. --11:45 Pierre Anne R.N. --END STRIKE>> The following entry was struck and corrected by Arcelia Tobias R.N., 12:02 (12/20/16) Reason for correction - other(correction). <<STRICKEN ENTRY-- Xarelto Oral. --11:45 Pierre Anne R.N. --END STRIKE>> The following entry was struck and corrected by Arcelia Tobias R.N., 12:01 (12/20/16) Reason for correction - other(correction). <<STRICKEN ENTRY-- Ventolin HFA Inhalation. --11:45 Pierre Anne R.N. --END STRIKE>> The following entry was struck and corrected by Arcelia Tobias R.N., 12:01 (12/20/16) Reason for correction - other(correction). <<[facility] ENTRY-- Tramadol HCL Oral. --11:45 Pierre Anne R.N. --END STRIKE>> The following entry was struck and corrected by Arcelia Tobias R.N., 12:00 (12/20/16) Reason for correction - other(correction). <<[facility] ENTRY-- Percocet Oral. --11:45 Pierre Anne R.N. --END STRIKE>> The following entry was struck and corrected by Arcelia Tobias R.N., 11:59 (12/20/16) Reason for correction - other(correction). <<[facility] ENTRY-- Omeprazole Oral. --11:45 Pierre Anne R.N. --END STRIKE>> The following entry was struck and corrected by Arcelia Tobias R.N., 11:59 (12/20/16) Reason for correction - other(correction). <<[facility] ENTRY-- MedroxyPROGESTERone Acetate Oral. --11:45 Pierre Anne R.N. --END STRIKE>> The following entry was struck and corrected by Arcelia Tobias R.N., 11:59 (12/20/16) Reason for correction - other(correction). <<[facility] ENTRY-- Lisinopril Oral. --11:45 Pierre Anne R.N. --END STRIKE>> The following entry was struck and corrected by Arcelia Tobias R.N., 11:58 (12/20/16) Reason for correction - other(correction). <<[facility] ENTRY-- HydrOXYzine HCl Oral. --11:45 Pierre Anne R.N. --END STRIKE>> The following entry was struck and corrected by Arcelia Tobias R.N., 11:58 (12/20/16) Reason for correction - other(correction). <<[facility] ENTRY-- Estradiol Oral. --11:45 Pierre Anne R.N. --END STRIKE>> The following entry was struck and corrected by Arcelia Tobias R.N., 11:57 (12/20/16) Reason for correction - other(correction). <<[facility] ENTRY-- DULoxetine HCl Oral. --11:45 Pierre Anne R.N. --END STRIKE>> The following entry was struck and corrected by Arcelia Tobias R.N., 11:57 (12/20/16) Reason for correction - other(correction). <<STRICKEN ENTRY-- Digoxin Oral. --11:45 Pierre Anne R.N. --END STRIKE>> The following entry was struck and corrected by Arcelia Tobias R.N., 11:56 (12/20/16) Reason for correction - other(correction). <<[facility] ENTRY-- Citalopram Hydrobromide Oral. --11:45 Pierre Anne R.N. --END STRIKE>> The following entry was struck and corrected by Arcelia Tobias R.N., 11:55 (12/20/16) Reason for correction - other(correction). <<STRICKEN ENTRY-- Carvedilol Phosphate ER Oral. --11:45 Pierre Anne R.N. --END STRIKE>> The following entry was struck and corrected by Arcelia Tobias R.N., 11:54 (12/20/16) Reason for correction - other(correction). <<STRICKEN ENTRY-- Azithromycin Oral. --11:45 Pierre Anne R.N. --END STRIKE>> The following entry was struck and corrected by Arcelia Tobias R.N., 11:52 (12/20/16) Reason for correction - other(correction). <<STRICKEN ENTRY-- Advair Diskus Inhalation. --11:45 Pierre Anne R.N. --END STRIKE>>. Medication/allergy information source: the patient. --11:48 Pierre Anne R.N. Allergies Shellfish-derived Products. Vicodin. --11:45 Pierre Anne R.N. Beta Adrenergic Blockers. --12:04 Arcelia Tobias R.N. Hydrocodone. --12:05 Arcelia Tobias R.N. History Arrived by private vehicle. Historian: patient. Accompanied by family. Primary physician (ROHITH). 11:44 12/20/16. Onset. (NOV 30). Treatment [employer]: (Oxycodone, Hydroxyzine). PAST MEDICAL HX: Immunizations: up-to-date. SOCIAL HX: Former smoker (quit 10 years ago). No alcohol use or drug use. No infectious disease exposure. ABUSE ASSESSMENT: No report of abuse. FALL RISK ASSESSMENT: Fall risk assessment completed. No fall risk identified. NUTRITIONAL RISK ASSESSMENT: The nutritional risk assessment revealed no deficiencies. FUNCTIONAL ASSESSMENT: Functional assessment: no impairments noted. LEARNING NEEDS ASSESSMENT: The learning needs assessment revealed no barriers. SKIN INTEGRITY ASSESSMENT: Skin integrity risk assessment completed. No skin integrity risk identified. --11:48 Pierre Anne R.N. PROBLEMS: Anxiety Reaction. Medication Refill. Bronchitis. Atrial Fibrillation. Hyperlipidemia. COPD - Chronic Obstructive Pulmonary Disease. Hypertension. Immunizations. --11:45 Pierre Anne R.N. ADDITIONAL SURGERIES: Dilatation & Curettage. Tonsillectomy. --11:45 Pierre Anne R.N. Assessment 11:44 12/20/16. --11:48 Pierre Anne R.N. Interventions 11:44 12/20/16. 11:44 12/20/16. ID and allergy band on patient. To treatment room. --11:48 Pierre Anne R.N. PHYSICAL ASSESSMENT 11:44 12/20/16. To room via wheelchair. GENERAL / NEURO / PSYCH: Alert. Oriented X 4. RESPIRATORY: Mild respiratory distress. The patient can speak in full sentences. CVS: Capillary refill less than 2 seconds. SKIN: Skin is warm and dry. --11:44 Pierre Anne R.N. NURSING PROGRESS NOTES 11:49 12/20/16. The plan of care for this patient has been created. Pulse oximeter and NIBP monitor placed on patient; monitor alarms on. Patient gowned. Head of bed elevated. Two patient identifiers checked. Call light placed in reach. Side rails up x 2. Bed placed in lowest position. Brakes of bed on. Brakes of chair on. --11:49 Pierre Anne R.N. 11:49 12/20/16. Patient ready for evaluation- chart flagged and ED physician notified. --11:49 Pierre Anne R.N. 11:49 12/20/16. HR: 93. O2 saturation: 97% on room air. --11:49 Pierre Anne R.N. 11:49 12/20/16. --11:49 Pierre Anne R.N. 12:27 12/20/16. ( X-ray completed). --12:27 Pierre Anne R.N. 12:12/20/16. Patient and family informed about reason for wait and about plan of care. --12:27 Pierre Anne R.N. 12:27 12/20/16. Patient waiting for diagnostic study result. --12:27 Pierre Anne R.N. 13:04 12/20/2016 Duoneb (Ipratropium-Albuterol) Neb TX Nebulizer 1 unit dose given. --13:04 Kelly Osei 13:26 12/20/2016 Site #1 started via IV in the left antecubital space with an 20g angiocath; one attempt. Blood drawn: rainbow set. Labeled in the presence of the patient and sent to the lab. Saline lock flushed. --13:31 Antonella Casanova R.N. 13:31 12/20/2016 SOLU-MEDROL (MethylPREDNISolone Sodium Succ) IVP 125 mg given over 1 minute(s) via site #1. Allergies verified and confirmed 5 rights. IV patency established. IV site checked: no pain, redness, or swelling. IV flushed thoroughly pre- and post-medication administration. IVP given by RN. --13:31 Antonella Casanova R.N. Patient ID band checked for patient name, birthdate and medical record number: patient confirmed. Blood samples drawn from the left antecubital space by nurse per protocol ; labeled in presence of the patient and sent to lab. Reassurance given. The patient is calm. Overall patient status is the same- she states feels the same. ( Pt complaint of "back pain chronic" ok by Dr. Cordero for patient to take her own oxy 5mg. IV initiated, tolerated well). Patient identifiers checked. Call light placed in reach. Side rails up x 1. Bed placed in lowest position. Brakes of bed on. Brakes of chair on. --13:41 Antonella Casanova R.N. 13:31 12/20/16. BP: 135/95 (regular adult cuff) taken on the left arm, via an automated monitor, while sitting. HR: 88. RR: 18. O2 saturation: 98% on room air. Temp: 98.2 F (oral). Pain level now: 03/23. --13:41 Antonella Casanova R.N. 14:09 12/20/16. Reassessment after medication administered. Overall patient status is improved- she states feels better. --14:09 Pierre Anne R.N. 14:08 12/20/16. BP: 125/85. HR: 100. RR: 20. O2 saturation: 93% on room air. Pain level now: 02/21. --14:09 Pierre Anne R.N. DISPOSITION / DISCHARGE 15:13 12/20/16. Condition at departure: improved. No learning barriers present. Discharge instructions provided and reviewed with the patient. Reviewed medication(s) side effects and dosing information. Prescription(s) given to the patient. Patient verbalized understanding. The patient was discharged by the physician. She was discharged home and accompanied by family. She left the Emergency Department in a wheelchair and via private vehicle. Family member driving. FALL RISK ASSESSMENT: Fall risk assessment completed. No fall risk identified. --15:13 Arcelia Tobias R.N. 15:10 12/20/16. BP: 127/90. HR: 90. RR: 16. O2 saturation: 94%. Temp: 98.3 F. Pain level now: . --15:13 Arcelia Tobias R.N. Departure time: 15:14. --15:14 Arcelia Tobias R.N. 15:11 12/20/2016 Site #1 removed upon discharge. Catheter intact. --15:26 Pierre Anne R.N. Locked/Released at 12/20/2016 15:26 by Pierre Anne R.N.
--- NOTE | 2016-12-20 19:26 | ED DISCHARGE INSTRUCTIONS ---
Patient: SHANNON PATEL General Instructions [facility] VisitID: [id number] [place] [address] 71y, F Registration Date/Time: 12/20/2016 COPD. Pneumonia. Atypical presentation with a delayed diagnosis. INSTRUCTIONS Drink plenty of fluids. Warnings: Further evaluation is necessary. GENERAL WARNINGS: Return or contact your physician immediately if your condition worsens or changes unexpectedly, if not improving as expected, or if other problems arise. Prescription Medications: Zithromax 250 mg tablets: take 2 orally today, followed by 1 daily for the next 4 days. No refills. Substitution is permissible. Prednisone 10 mg tablets: take 4 orally every day for 5 days, then 2 every day for 3 days, then 1 every day for 2 days. Dispense twenty-eight (28). No refills. Understanding of the discharge instructions verbalized by patient. Follow-up with: Porfirio Nguyen MD, [facility], , [facility], [id number] [address] Follow up in five days. Call for the next available appointment. ADDITIONAL INFORMATION COPD Flare Both emphysema and chronic bronchitis are forms of chronic obstructive pulmonary disease (COPD). It is most often caused by many years of smoking tobacco. Many things can make your lung disease suddenly get worse. These causes include the common cold, pneumonia, acute bronchitis, missing doses of your regular breathing medicines, or being around smoke, dust, or other air pollutants. A COPD flare may last 7 to 14 days. Your doctor may prescribe medicineto relax your airways and prevent wheezing. Your doctor may also prescribe antibiotics if he or she thinks you havea bacterial infection. Prednisone can helpease inflammation in a severe attack. Home care Here are things you can do at home: Drink lots of water or other fluids (at least 10 glasses a day) during an attack. This will loosen lung secretions and make it easier to breathe. If you have heart or kidney disease, check with your doctor before you drink extra amounts of fluids. Take prescribed medicine exactly at the times advised. If you have a hand-held inhaler or aerosol breathing medicine, don't use it more than once every 4 hours, unless your doctor tells you to. If you were givenan antibiotic or prednisone, take all of the medicine even if you are feeling better after a few days. Don't smoke. Avoid being aroundthe smoke of others. If you were given an inhaler, use it exactly as directed. If you need to use it more often than prescribed, your condition may be getting worse. Call your doctor. Follow-up care Follow up with your health care provider.If you are 65 or older or have chronic asthma or COPD, you should get a single dose of the pneumococcal vaccine and aflu shot each year. You may need a second dose of the pneumococcal vaccine if you had the first dose at a younger age. Your health care provider will let you know if you need a second dose. For all other people, the usual dose for the pneumococcal vaccine is 1 or 2 shots. Yourprovider can discuss this with you. When to seek medical care Get prompt medical attention ifany of these occur: Increased wheezing or shortness of breath Need to use your inhalers more often than usual without relief Fever of 100.4F(38C) or higher, or as directed by your health care provider Coughing up lots of dark-colored or bloody sputum (mucus) Chest pain with each breath You do not start to improve within 24 hours Pneumonia (Adult) Pneumonia is an infection deep within the lung, in the small air sacs (alveoli). It may be due to a virus or bacteria and is usually treated with an antibiotic. Severe cases require treatment in the hospital. Milder cases can be treated at home. Symptoms usually start to improve during the first2 days of treatment. Home Care: Rest at home for the first 23 days or until you feel stronger. When resuming activity, dont let yourself become overly tired. Avoid exposure to cigarette smoke (yours or others). You may use acetaminophen (Tylenol) or ibuprofen (Motrin, Advil) to control fever or pain, unless another medicine was prescribed. [NOTE: If you have chronic liver or kidney disease or ever had a stomach ulcer or GI bleeding, talk with your doctor before using these medicines.] (Aspirin should never be used in anyone under 18 years of age who is ill with a fever. It may cause severe liver damage.) Your appetite may be poor so a light diet is fine. Keep well hydrated by drinking 68 glasses of fluids per day (water, sport drinks such as Gatorade, sodas without caffeine, juices, tea, soup, etc.). This will help loosen secretions in the lung, making it easier for you to cough up the phlegm (sputum). If you also have heart or kidney disease, check with your doctor before you drink extra amounts of fluids. Finish all antibiotic medicine prescribed, even if you are feeling better after a few days. Follow Up with your doctor in the next 23 days (or as advised) to be sure you are responding properly to the medicine. [NOTE: If you are age 65 or older, or if you have chronic lung disease (asthma, emphysema or COPD), we recommendthe pneumococcal vaccination and a yearlyinfluenzavaccination(flu-shot) every . Ask your doctor about this.] Get Prompt Medical Attention if any of the following occur: Not getting better within the first 48 hours of treatment Increasing shortness of breath or rapid breathing (over 25 breaths/minute) Coughing up blood or increasing chest pain with breathing Fever of 100.4F (38C) oral or higher, not better with fever medication Increasing weakness, dizziness or fainting Increasing thirst or dry mouth Sinus pain, headache or a stiff neck Chest pain not caused by coughing Azithromycin Oral tablet What is this medicine? AZITHROMYCIN (az ith atul MYE sin) is a macrolide antibiotic. It is used to treat or prevent certain kinds of bacterial infections. It will not work for colds, flu, or other viral infections. How should I use this medicine? Take this medicine by mouth with a full glass of water. Follow the directions on the prescription label. The tablets can be taken with food or on an empty stomach. If the medicine upsets your stomach, take it with food. Take your medicine at regular intervals. Do not take your medicine more often than directed. Take all of your medicine as directed even if you think your are better. Do not skip doses or stop your medicine early. Talk to your vegetable washing machine operator regarding the use of this medicine in children. Special care may be needed. What side effects may I notice from receiving this medicine? Side effects that you should report to your doctor or health vehicle care specialist as soon as possible: allergic reactions like skin rash, itching or hives, swelling of the face, lips, or tongue confusion, nightmares or hallucinations dark urine difficulty breathing hearing loss irregular heartbeat or chest pain pain or difficulty passing urine redness, blistering, peeling or loosening of the skin, including inside the mouth white patches or sores in the mouth yellowing of the eyes or skin Side effects that usually do not require medical attention (report to your doctor or health vehicle care specialist if they continue or are bothersome): diarrhea dizziness, drowsiness headache stomach upset or vomiting tooth discoloration vaginal irritation What may interact with this medicine? Do not take this medicine with any of the following medications: lincomycin This medicine may also interact with the following medications: amiodarone antacids cyclosporine digoxin magnesium nelfinavir phenytoin warfarin What if I miss a dose? If you miss a dose, take it as soon as you can. If it is almost time for your next dose, take only that dose. Do not take double or extra doses. Where should I keep my medicine? Keep out of the reach of children. Store at room temperature between 15 and 30 degrees C (59 and 86 degrees F). Throw away any unused medicine after the expiration date. What should I tell my health care provider before I take this medicine? They need to know if you have any of these conditions: kidney disease liver disease irregular heartbeat or heart disease an unusual or allergic reaction to azithromycin, erythromycin, other macrolide antibiotics, foods, dyes, or preservatives or trying to get breast-feeding What should I watch for while using this medicine? Tell your doctor or health vehicle care specialist if your symptoms do not improve. Do not treat diarrhea with over the counter products. Contact your doctor if you have diarrhea that lasts more than 2 days or if it is severe and watery. This medicine can make you more sensitive to the sun. Keep out of the sun. If you cannot avoid being in the sun, wear protective clothing and use sunscreen. Do not use sun lamps or tanning beds/booths. Prednisone Oral tablet What is this medicine? PREDNISONE (PRED ni sone) is a corticosteroid. It is commonly used to treat inflammation of the skin, joints, lungs, and other organs. Common conditions treated include asthma, allergies, and arthritis. It is also used for other conditions, such as blood disorders and diseases of the adrenal glands. How should I use this medicine? Take this medicine by mouth with a glass of water. Follow the directions on the prescription label. Take this medicine with food. If you are taking this medicine once a day, take it in the morning. Do not take more medicine than you are told to take. Do not suddenly stop taking your medicine because you may develop a severe reaction. Your doctor will tell you how much medicine to take. If your doctor wants you to stop the medicine, the dose may be slowly lowered over time to avoid any side effects. Talk to your vegetable washing machine operator regarding the use of this medicine in children. Special care may be needed. What side effects may I notice from receiving this medicine? Side effects that you should report to your doctor or health vehicle care specialist as soon as possible: allergic reactions like skin rash, itching or hives, swelling of the face, lips, or tongue changes in emotions or moods changes in vision depressed mood eye pain fever or chills, cough, sore throat, pain or difficulty passing urine increased thirst swelling of ankles, feet Side effects that usually do not require medical attention (report to your doctor or health vehicle care specialist if they continue or are bothersome): confusion, excitement, restlessness headache nausea, vomiting skin problems, acne, thin and shiny skin trouble sleeping weight gain What may interact with this medicine? Do not take this medicine with any of the following medications: metyrapone mifepristone This medicine may also interact with the following medications: aminoglutethimide amphotericin B aspirin and aspirin-like medicines barbiturates certain medicines for diabetes, like glipizide or glyburide cholestyramine cholinesterase inhibitors cyclosporine digoxin diuretics ephedrine female hormones, like estrogens and control pills isoniazid ketoconazole NSAIDS, medicines for pain and inflammation, like ibuprofen or naproxen phenytoin rifampin toxoids vaccines warfarin What if I miss a dose? If you miss a dose, take it as soon as you can. If it is almost time for your next dose, talk to your doctor or health vehicle care specialist. You may need to miss a dose or take an extra dose. Do not take double or extra doses without advice. Where should I keep my medicine? Keep out of the reach of children. Store at room temperature between 15 and 30 degrees C (59 and 86 degrees F). Protect from light. Keep container tightly closed. Throw away any unused medicine after the expiration date. What should I tell my health care provider before I take this medicine? They need to know if you have any of these conditions: Damien's syndrome diabetes glaucoma heart disease high blood pressure infection (especially a virus infection such as chickenpox, cold sores, or herpes) kidney disease liver disease mental illness myasthenia gravis osteoporosis seizures stomach or intestine problems thyroid disease an unusual or allergic reaction to lactose, prednisone, other medicines, foods, dyes, or preservatives or trying to get breast-feeding What should I watch for while using this medicine? Visit your doctor or health vehicle care specialist for regular checks on your progress. If you are taking this medicine over a prolonged period, carry an identification card with your name and address, the type and dose of your medicine, and your doctor's name and address. This medicine may increase your risk of getting an infection. Tell your doctor or health vehicle care specialist if you are around anyone with measles or chickenpox, or if you develop sores or blisters that do not heal properly. If you are going to have surgery, tell your doctor or health vehicle care specialist that you have taken this medicine within the last twelve months. Ask your doctor or health vehicle care specialist about your diet. You may need to lower the amount of salt you eat. This medicine may affect blood sugar levels. If you have diabetes, check with your doctor or health vehicle care specialist before you change your diet or the dose of your diabetic medicine. You have been given the following additional information: COPD Flare Pneumonia (Adult) Azithromycin Oral tablet Prednisone Oral tablet (Electronically signed by Aiden Cordero MD 12/20/2016 19:26)
--- NOTE | 2016-12-20 19:26 | ED MED RECONCILIATION SUMMARY ---
Patient: SHANNON PATEL Medication Reconciliation Report [facility] VisitID: [id number] [place] [address] 71y, F Registration Date/Time: 12/20/2016 Weight: 84.8 kg Height/Length: 62 in. BMI: 34.2 ALLERGIES: Beta Adrenergic Blockers, Hydrocodone, Shellfish-derived Products, Vicodin The patient's Home Medications are listed below: THE FOLLOWING MEDICATIONS NEED TO BE RECONCILED: Advair Diskus Inhalation (250-50 mcg/dose) 1 puff, 2x a day Atorvastatin Calcium Oral (20 mg) 1 tablet, daily Azithromycin Oral (500 mg) 1 tablet, Mon, Wed, Fri Carvedilol Phosphate ER Oral (10 mg) 25mg, 2xday Citalopram Hydrobromide Oral (40 mg) 1 tablet Digoxin Oral (125 mcg) 1 tablet, daily DULoxetine HCl Oral (60 mg) 1 capsule Estradiol Oral (1 mg) 1 tablet Fluticasone Furoate Nasal 50mcg, qd Furosemide Oral (20 mg) 1 tablet, daily HydrOXYzine HCl Oral (25 mg) 1 tablet, 4x a day Lisinopril Oral (5 mg) 1-1/2 tablets, at bedtime MedroxyPROGESTERone Acetate Oral (2.5 mg) 1 tablet, daily Naproxen Oral (500 mg) 1 tablet, 2x a day Omeprazole Oral (20 mg) 1 tablet, daily Percocet Oral (5-325 mg) 1-2, 3x a day Tramadol HCL Oral (50 mg) 1-1/2 tablets, 3x a day Ventolin HFA Inhalation (108 (90 Base) mcg/act) 2 puff, q4hrs Xanax Oral (0.25 mg) 1 tablet Xarelto Oral (20 mg) 1 tablet The source(s) of the original Home Medication information: patient The following Medications were given to the patient in the Emergency Department: Duoneb [Neb Tx] Neb TX 1 unit dose, administered: 12/20/2016 1:04:00 PM SOLU-MEDROL [IVP] IVP 125 mg, administered: 12/20/2016 1:31:00 PM The following Medications were prescribed to the patient: Zithromax 250 mg tablets: take 2 orally today, followed by 1 daily for the next 4 days. No refills. Substitution is permissible. -- Aiden Cordero MD Prednisone 10 mg tablets: take 4 orally every day for 5 days, then 2 every day for 3 days, then 1 every day for 2 days. Dispense twenty-eight (28). No refills. -- Aiden Cordero MD
--- NOTE | 2016-12-20 19:26 | ED MAR SUMMARY ---
..... Medication Administration Record [facility] [address] [place] [address] Patient: SHANNON PATEL Visit ID: [id number] 71y, F Weight: 84.8 kg Height/Length: 62 in BMI: 34.2 ALLERGIES: Shellfish-derived Products, Vicodin, Hydrocodone, Beta Adrenergic Blockers Given 13:04 12/20/2016 Kelly Osei, Medication Administered: DUONEB [NEB TX] (IPRATROPIUM-ALBUTEROL), Dose: 1 unit dose Nebulizer Neb TX. Medication Ordered: DuoNeb Neb Tx 1 unit dose (NOW). Given 13:31 12/20/2016 Antonella Casanova R.N. Medication Administered: SOLU-MEDROL [IVP] (METHYLPREDNISOLONE SODIUM SUCC), Dose: 125 mg IVP over 1 minute(s), Site: #1 left AC. Medication Ordered: Solu-MEDROL IV 125 mg (NOW).
--- NOTE | 2016-12-20 19:26 | ED DISCHARGE INSTRUCTIONS ---
Patient: SHANNON PATEL General Instructions [facility] VisitID: [id number] [place] [address] 71y, F Registration Date/Time: 12/20/2016 COPD. Pneumonia. Atypical presentation with a delayed diagnosis. INSTRUCTIONS Drink plenty of fluids. Warnings: Further evaluation is necessary. GENERAL WARNINGS: Return or contact your physician immediately if your condition worsens or changes unexpectedly, if not improving as expected, or if other problems arise. Prescription Medications: Zithromax 250 mg tablets: take 2 orally today, followed by 1 daily for the next 4 days. No refills. Substitution is permissible. Prednisone 10 mg tablets: take 4 orally every day for 5 days, then 2 every day for 3 days, then 1 every day for 2 days. Dispense twenty-eight (28). No refills. Understanding of the discharge instructions verbalized by patient. Follow-up with: Porfirio Nguyen MD, [facility], , [facility], [id number] [id number] Follow up in five days. Call for the next available appointment. ADDITIONAL INFORMATION COPD Flare Both emphysema and chronic bronchitis are forms of chronic obstructive pulmonary disease (COPD). It is most often caused by many years of smoking tobacco. Many things can make your lung disease suddenly get worse. These causes include the common cold, pneumonia, acute bronchitis, missing doses of your regular breathing medicines, or being around smoke, dust, or other air pollutants. A COPD flare may last 7 to 14 days. Your doctor may prescribe medicineto relax your airways and prevent wheezing. Your doctor may also prescribe antibiotics if he or she thinks you havea bacterial infection. Prednisone can helpease inflammation in a severe attack. Home care Here are things you can do at home: Drink lots of water or other fluids (at least 10 glasses a day) during an attack. This will loosen lung secretions and make it easier to breathe. If you have heart or kidney disease, check with your doctor before you drink extra amounts of fluids. Take prescribed medicine exactly at the times advised. If you have a hand-held inhaler or aerosol breathing medicine, don't use it more than once every 4 hours, unless your doctor tells you to. If you were givenan antibiotic or prednisone, take all of the medicine even if you are feeling better after a few days. Don't smoke. Avoid being aroundthe smoke of others. If you were given an inhaler, use it exactly as directed. If you need to use it more often than prescribed, your condition may be getting worse. Call your doctor. Follow-up care Follow up with your health care provider.If you are 65 or older or have chronic asthma or COPD, you should get a single dose of the pneumococcal vaccine and aflu shot each year. You may need a second dose of the pneumococcal vaccine if you had the first dose at a younger age. Your health care provider will let you know if you need a second dose. For all other people, the usual dose for the pneumococcal vaccine is 1 or 2 shots. Yourprovider can discuss this with you. When to seek medical care Get prompt medical attention ifany of these occur: Increased wheezing or shortness of breath Need to use your inhalers more often than usual without relief Fever of 100.4F(38C) or higher, or as directed by your health care provider Coughing up lots of dark-colored or bloody sputum (mucus) Chest pain with each breath You do not start to improve within 24 hours Pneumonia (Adult) Pneumonia is an infection deep within the lung, in the small air sacs (alveoli). It may be due to a virus or bacteria and is usually treated with an antibiotic. Severe cases require treatment in the hospital. Milder cases can be treated at home. Symptoms usually start to improve during the first2 days of treatment. Home Care: Rest at home for the first 23 days or until you feel stronger. When resuming activity, dont let yourself become overly tired. Avoid exposure to cigarette smoke (yours or others). You may use acetaminophen (Tylenol) or ibuprofen (Motrin, Advil) to control fever or pain, unless another medicine was prescribed. [NOTE: If you have chronic liver or kidney disease or ever had a stomach ulcer or GI bleeding, talk with your doctor before using these medicines.] (Aspirin should never be used in anyone under 18 years of age who is ill with a fever. It may cause severe liver damage.) Your appetite may be poor so a light diet is fine. Keep well hydrated by drinking 68 glasses of fluids per day (water, sport drinks such as Gatorade, sodas without caffeine, juices, tea, soup, etc.). This will help loosen secretions in the lung, making it easier for you to cough up the phlegm (sputum). If you also have heart or kidney disease, check with your doctor before you drink extra amounts of fluids. Finish all antibiotic medicine prescribed, even if you are feeling better after a few days. Follow Up with your doctor in the next 23 days (or as advised) to be sure you are responding properly to the medicine. [NOTE: If you are age 65 or older, or if you have chronic lung disease (asthma, emphysema or COPD), we recommendthe pneumococcal vaccination and a yearlyinfluenzavaccination(flu-shot) every . Ask your doctor about this.] Get Prompt Medical Attention if any of the following occur: Not getting better within the first 48 hours of treatment Increasing shortness of breath or rapid breathing (over 25 breaths/minute) Coughing up blood or increasing chest pain with breathing Fever of 100.4F (38C) oral or higher, not better with fever medication Increasing weakness, dizziness or fainting Increasing thirst or dry mouth Sinus pain, headache or a stiff neck Chest pain not caused by coughing Azithromycin Oral tablet What is this medicine? AZITHROMYCIN (az ith atul MYE sin) is a macrolide antibiotic. It is used to treat or prevent certain kinds of bacterial infections. It will not work for colds, flu, or other viral infections. How should I use this medicine? Take this medicine by mouth with a full glass of water. Follow the directions on the prescription label. The tablets can be taken with food or on an empty stomach. If the medicine upsets your stomach, take it with food. Take your medicine at regular intervals. Do not take your medicine more often than directed. Take all of your medicine as directed even if you think your are better. Do not skip doses or stop your medicine early. Talk to your linen grader regarding the use of this medicine in children. Special care may be needed. What side effects may I notice from receiving this medicine? Side effects that you should report to your doctor or health resident care director as soon as possible: allergic reactions like skin rash, itching or hives, swelling of the face, lips, or tongue confusion, nightmares or hallucinations dark urine difficulty breathing hearing loss irregular heartbeat or chest pain pain or difficulty passing urine redness, blistering, peeling or loosening of the skin, including inside the mouth white patches or sores in the mouth yellowing of the eyes or skin Side effects that usually do not require medical attention (report to your doctor or health resident care director if they continue or are bothersome): diarrhea dizziness, drowsiness headache stomach upset or vomiting tooth discoloration vaginal irritation What may interact with this medicine? Do not take this medicine with any of the following medications: lincomycin This medicine may also interact with the following medications: amiodarone antacids cyclosporine digoxin magnesium nelfinavir phenytoin warfarin What if I miss a dose? If you miss a dose, take it as soon as you can. If it is almost time for your next dose, take only that dose. Do not take double or extra doses. Where should I keep my medicine? Keep out of the reach of children. Store at room temperature between 15 and 30 degrees C (59 and 86 degrees F). Throw away any unused medicine after the expiration date. What should I tell my health care provider before I take this medicine? They need to know if you have any of these conditions: kidney disease liver disease irregular heartbeat or heart disease an unusual or allergic reaction to azithromycin, erythromycin, other macrolide antibiotics, foods, dyes, or preservatives or trying to get breast-feeding What should I watch for while using this medicine? Tell your doctor or health resident care director if your symptoms do not improve. Do not treat diarrhea with over the counter products. Contact your doctor if you have diarrhea that lasts more than 2 days or if it is severe and watery. This medicine can make you more sensitive to the sun. Keep out of the sun. If you cannot avoid being in the sun, wear protective clothing and use sunscreen. Do not use sun lamps or tanning beds/booths. Prednisone Oral tablet What is this medicine? PREDNISONE (PRED ni sone) is a corticosteroid. It is commonly used to treat inflammation of the skin, joints, lungs, and other organs. Common conditions treated include asthma, allergies, and arthritis. It is also used for other conditions, such as blood disorders and diseases of the adrenal glands. How should I use this medicine? Take this medicine by mouth with a glass of water. Follow the directions on the prescription label. Take this medicine with food. If you are taking this medicine once a day, take it in the morning. Do not take more medicine than you are told to take. Do not suddenly stop taking your medicine because you may develop a severe reaction. Your doctor will tell you how much medicine to take. If your doctor wants you to stop the medicine, the dose may be slowly lowered over time to avoid any side effects. Talk to your linen grader regarding the use of this medicine in children. Special care may be needed. What side effects may I notice from receiving this medicine? Side effects that you should report to your doctor or health resident care director as soon as possible: allergic reactions like skin rash, itching or hives, swelling of the face, lips, or tongue changes in emotions or moods changes in vision depressed mood eye pain fever or chills, cough, sore throat, pain or difficulty passing urine increased thirst swelling of ankles, feet Side effects that usually do not require medical attention (report to your doctor or health resident care director if they continue or are bothersome): confusion, excitement, restlessness headache nausea, vomiting skin problems, acne, thin and shiny skin trouble sleeping weight gain What may interact with this medicine? Do not take this medicine with any of the following medications: metyrapone mifepristone This medicine may also interact with the following medications: aminoglutethimide amphotericin B aspirin and aspirin-like medicines barbiturates certain medicines for diabetes, like glipizide or glyburide cholestyramine cholinesterase inhibitors cyclosporine digoxin diuretics ephedrine female hormones, like estrogens and control pills isoniazid ketoconazole NSAIDS, medicines for pain and inflammation, like ibuprofen or naproxen phenytoin rifampin toxoids vaccines warfarin What if I miss a dose? If you miss a dose, take it as soon as you can. If it is almost time for your next dose, talk to your doctor or health resident care director. You may need to miss a dose or take an extra dose. Do not take double or extra doses without advice. Where should I keep my medicine? Keep out of the reach of children. Store at room temperature between 15 and 30 degrees C (59 and 86 degrees F). Protect from light. Keep container tightly closed. Throw away any unused medicine after the expiration date. What should I tell my health care provider before I take this medicine? They need to know if you have any of these conditions: Damien's syndrome diabetes glaucoma heart disease high blood pressure infection (especially a virus infection such as chickenpox, cold sores, or herpes) kidney disease liver disease mental illness myasthenia gravis osteoporosis seizures stomach or intestine problems thyroid disease an unusual or allergic reaction to lactose, prednisone, other medicines, foods, dyes, or preservatives or trying to get breast-feeding What should I watch for while using this medicine? Visit your doctor or health resident care director for regular checks on your progress. If you are taking this medicine over a prolonged period, carry an identification card with your name and address, the type and dose of your medicine, and your doctor's name and address. This medicine may increase your risk of getting an infection. Tell your doctor or health resident care director if you are around anyone with measles or chickenpox, or if you develop sores or blisters that do not heal properly. If you are going to have surgery, tell your doctor or health resident care director that you have taken this medicine within the last twelve months. Ask your doctor or health resident care director about your diet. You may need to lower the amount of salt you eat. This medicine may affect blood sugar levels. If you have diabetes, check with your doctor or health resident care director before you change your diet or the dose of your diabetic medicine. You have been given the following additional information: COPD Flare Pneumonia (Adult) Azithromycin Oral tablet Prednisone Oral tablet (Electronically signed by Aiden Cordero MD 12/20/2016 19:26)
--- NOTE | 2016-12-20 19:26 | ED MAR SUMMARY ---
..... Medication Administration Record [facility] [address] [place] [address] Patient: SHANNON PATEL Visit ID: [id number] 71y, F Weight: 84.8 kg Height/Length: 62 in BMI: 34.2 ALLERGIES: Shellfish-derived Products, Vicodin, Hydrocodone, Beta Adrenergic Blockers Given 13:04 12/20/2016 Kelly Osei, Medication Administered: DUONEB [NEB TX] (IPRATROPIUM-ALBUTEROL), Dose: 1 unit dose Nebulizer Neb TX. Medication Ordered: DuoNeb Neb Tx 1 unit dose (NOW). Given 13:31 12/20/2016 Antonella Casanova R.N. Medication Administered: SOLU-MEDROL [IVP] (METHYLPREDNISOLONE SODIUM SUCC), Dose: 125 mg IVP over 1 minute(s), Site: #1 left AC. Medication Ordered: Solu-MEDROL IV 125 mg (NOW).
--- NOTE | 2016-12-20 19:26 | ED MED RECONCILIATION SUMMARY ---
Patient: SHANNON PATEL Medication Reconciliation Report [facility] VisitID: [id number] [place] [address] 71y, F Registration Date/Time: 12/20/2016 Weight: 84.8 kg Height/Length: 62 in. BMI: 34.2 ALLERGIES: Beta Adrenergic Blockers, Hydrocodone, Shellfish-derived Products, Vicodin The patient's Home Medications are listed below: THE FOLLOWING MEDICATIONS NEED TO BE RECONCILED: Advair Diskus Inhalation (250-50 mcg/dose) 1 puff, 2x a day Atorvastatin Calcium Oral (20 mg) 1 tablet, daily Azithromycin Oral (500 mg) 1 tablet, Mon, Wed, Fri Carvedilol Phosphate ER Oral (10 mg) 25mg, 2xday Citalopram Hydrobromide Oral (40 mg) 1 tablet Digoxin Oral (125 mcg) 1 tablet, daily DULoxetine HCl Oral (60 mg) 1 capsule Estradiol Oral (1 mg) 1 tablet Fluticasone Furoate Nasal 50mcg, qd Furosemide Oral (20 mg) 1 tablet, daily HydrOXYzine HCl Oral (25 mg) 1 tablet, 4x a day Lisinopril Oral (5 mg) 1-1/2 tablets, at bedtime MedroxyPROGESTERone Acetate Oral (2.5 mg) 1 tablet, daily Naproxen Oral (500 mg) 1 tablet, 2x a day Omeprazole Oral (20 mg) 1 tablet, daily Percocet Oral (5-325 mg) 1-2, 3x a day Tramadol HCL Oral (50 mg) 1-1/2 tablets, 3x a day Ventolin HFA Inhalation (108 (90 Base) mcg/act) 2 puff, q4hrs Xanax Oral (0.25 mg) 1 tablet Xarelto Oral (20 mg) 1 tablet The source(s) of the original Home Medication information: patient The following Medications were given to the patient in the Emergency Department: Duoneb [Neb Tx] Neb TX 1 unit dose, administered: 12/20/2016 1:04:00 PM SOLU-MEDROL [IVP] IVP 125 mg, administered: 12/20/2016 1:31:00 PM The following Medications were prescribed to the patient: Zithromax 250 mg tablets: take 2 orally today, followed by 1 daily for the next 4 days. No refills. Substitution is permissible. -- Aiden Cordero MD Prednisone 10 mg tablets: take 4 orally every day for 5 days, then 2 every day for 3 days, then 1 every day for 2 days. Dispense twenty-eight (28). No refills. -- Aiden Cordero MD
== END 2016-12-20 15:14 | disposition home or self-care (01) ==
LOC: ED SRH 11:30
DX: J18.9 Pneumonia, unspecified organism (principal); J44.9 Chronic obstructive pulmonary disease, unspecified; Z87.891 Personal history of nicotine dependence; Z79.899 Other long term (current) drug therapy; Z88.5 Allergy status to narcotic agent
CPT/HCPCS: 90100; 91400; 93004; 95059

== ENCOUNTER 2016-12-22 06:07 | Observation (INO) | payer OTHER, MEDICARE ==
[~2016-12-22] VITALS: Ht 157.5 cm; Wt 84.7 kg
--- NOTE | 2016-12-22 07:22 | DIAGNOSTIC IMAGING REPORT ---
PROCEDURE: XR CHEST 1 VIEW INDICATION: Pneumonia, follow-up TECHNIQUE: Portable AP view 06:42 a.m. COMPARISON: Chest x-ray 12/20/1978 and 10/30/2016.. FINDINGS: Slight progression of mild left basilar infiltrate. Right lung is clear. Mild to moderate cardiomegaly. Mediastinum and pulmonary vascularity are normal. Thorax is normal. IMPRESSION: 1. Slight progression of mild left basilar infiltrate 2. Stable cardiomegaly
--- NOTE | 2016-12-22 08:30 | ED CLINICAL REPORT ---
Clinical Report - Physicians/Mid Levels [facility] [address] [place] [address] 12/22/2016 6:08 Patient: SHANNON PATEL Time Seen: 06:26. Arrived- By ambulance. Historian- patient and EMS personnel. HISTORY OF PRESENT ILLNESS Chief Complaint: DYSPNEA and HISTORY OF CHRONIC OBSTRUCTIVE PULMONARY DISEASE. This started about 3 weeks ago and is still present. It was gradual in onset and has been constant and waxing/waning. The dyspnea is described as moderate. The patient has had yellow sputum, a cough and dyspnea on exertion. No chest pain, calf pain or foot swelling. Recent medical care: The patient was seen recently at this facility. Seen for similar symptoms. Evaluation/treatment: x-rays and medication prescribed. Diagnosis: chronic obstructive pulmonary disease and pneumonia. REVIEW OF SYSTEMS The patient has had mild abdominal pain ("Sore"). The pain is described as located in the upper abdomen. She has had moderate nausea (she attributes this to the Zithromax.). All systems otherwise negative, except as recorded above. PAST HISTORY Problems: Pneumonia. Anxiety Reaction. Medication Refill. Bronchitis. Atrial Fibrillation. Hyperlipidemia. COPD - Chronic Obstructive Pulmonary Disease. Hypertension. Additional Surgeries: Dilatation & Curettage. Tonsillectomy. Medications: PredniSONE Oral 40 mg, daily. Advair Diskus Inhalation (Aerosol Powder Breath Activated 250-50 mcg/dose) 1 puff, 2x a day. Atorvastatin Calcium Oral (Tablet 20 mg) 1 tablet, daily. Azithromycin Oral (Tablet 500 mg) 1 tablet, Mon, Wed, Fri. Carvedilol Phosphate ER Oral (Capsule Extended Release 24 Hour 10 mg) 25mg, 2xday. Citalopram Hydrobromide Oral (Tablet 40 mg) 1 tablet. Digoxin Oral (Tablet 125 mcg) 1 tablet, daily. DULoxetine HCl Oral (Capsule Delayed Release Particles 60 mg) 1 capsule. Estradiol Oral (Tablet 1 mg) 1 tablet. Fluticasone Furoate Nasal 50mcg, qd. Furosemide Oral (Tablet 20 mg) 1 tablet, daily. HydrOXYzine HCl Oral (Tablet 25 mg) 1 tablet, 4x a day as needed. Lisinopril Oral (Tablet 5 mg) 1-1/2 tablets, at bedtime. MedroxyPROGESTERone Acetate Oral (Tablet 2.5 mg) 1 tablet, daily. Naproxen Oral (Tablet 500 mg) 1 tablet, 2x a day. Omeprazole Oral (Tablet Delayed Release 20 mg) 1 tablet, daily. Percocet Oral (Tablet 5-325 mg) 1-2, 3x a day as needed. Tramadol HCL Oral (Tablet 50 mg) 1-1/2 tablets, 3x a day. Ventolin HFA Inhalation (Aerosol Solution 108 (90 Base) mcg/act) 2 puff, q4hrs. Xanax Oral (Tablet 0.25 mg) 1 tablet, as needed. Xarelto Oral (Tablet 20 mg) 1 tablet. Allergies: Beta Adrenergic Blockers. Hydrocodone. Shellfish-derived Products. Vicodin. SOCIAL HISTORY Former smoker. ADDITIONAL NOTES The nursing notes have been reviewed. PHYSICAL EXAM Vital Signs: 12/22/2016 06:12 BP: 161/98. HR: 87. RR: 18. O2 saturation: 96%. Temp: 98.7 F. Pain level now: 8/10. Have been reviewed. Appearance: Alert. Eyes: Pupils equal, round and reactive to light. ENT: Pharynx normal. Uvula midline. Neck: Normal inspection. No jugular venous distention. Neck supple. CVS: Abnormal rhythm, which is irregularly irregular. Respiratory: Prolonged expirations. Decreased air movement. Rhonchi present in the left lung base posteriorly. No wheezes. Abdomen: Soft and nontender. No organomegaly. Back: Normal inspection. Skin: Skin warm and dry. Normal skin color. Normal skin turgor. Extremities: Extremities exhibit normal ROM. No calf tenderness. No lower extremity edema. LABS, X-RAYS, AND EKG EKG: Rate: 90. Atrial fibrillation. Non-specific ST segment / T wave abnormalities. EKG unchanged when compared with prior EKG. (30 Oct 2016). Chest X-ray: (IMPRESSION: 1. Slight progression of mild left basilar infiltrate 2. Stable cardiomegaly). The X-rays were interpreted by the radiologist and contemporaneously by me. Laboratory Tests: CBC w Diff: (MIS: 12/24/2016 05:15) ( MsgRcvd 12/24/2016 06:15) Final results Test Result Flag Units (Reference) WHITE BLOOD COUNT 7.8 K/uL (4.5-11.5) RED BLOOD COUNT 4.39 M/uL (4.00-5.20) HEMOGLOBIN 13.1 gm/dL (12.0-16.0) HEMATOCRIT 40.0 % (36.0-46.0) MEAN CELL VOLUME 91 fL (80-100) MEAN CORPUSCULAR HGB 30 pg (26-34) MEAN CORPUSCULAR HGB CONC 33 g/dL (31-37) RED CELL DISTRIBUTION WIDTH 13.9 % (11.6-14.8) PLATELET COUNT 292 K/uL (150-400) NEUTROPHIL % 87.4 H % (50-75) LYMPH % 9.4 L % (25-40) MONO % 3.2 % (3-14) EOSINOPHIL % 0 % (0-4) BASOPHIL % 0 % (0-2) CMP: (MIS: 12/24/2016 05:15) ( MsgRcvd 12/24/2016 06:41) Final results Test Result Flag Units (Reference) GLUCOSE 143 H mg/dL (70-110) BUN 11 mg/dL (7-18) CREATININE 0.5 L mg/dL (0.6-1.3) Estimated GFR >60 mL/min Estimated GFR- >60 mL/min Note: Persistent reduction over 3 months in eGFR<60 mL/min/1.73 m2 defines CKD. Patients with eGFR values>=60 mL/min/1.73 m2 may also have CKD if evidence ofpersistent proteinuria. Additional information may be foundat [email or web address]. SODIUM 135 L mmol/L (136-145) POTASSIUM 4.3 mmol/L (3.5-5.1) CHLORIDE 104 mmol/L (98-107) CARBON DIOXIDE 24 mmol/L (21-32) CALCIUM 7.8 L mg/dL (8.5-10.1) TOTAL PROTEIN 5.8 L g/dL (6.4-8.2) ALBUMIN 2.8 L g/dL (3.3-5.0) BILIRUBIN, TOTAL 0.3 mg/dL (0.0-1.0) ALKALINE PHOSPHATASE 44 L U/L (46-116) AST (SGOT) 18 U/L (15-37) ALT (SGPT) 18 U/L (12-78) CBC w Diff: (MIS: 12/23/2016 05:05) ( MsgRcvd 12/23/2016 05:45) Final results Test Result Flag Units (Reference) WHITE BLOOD COUNT 5.4 # K/uL (4.5-11.5) RED BLOOD COUNT 4.30 M/uL (4.00-5.20) HEMOGLOBIN 13.0 gm/dL (12.0-16.0) HEMATOCRIT 39.3 % (36.0-46.0) MEAN CELL VOLUME 91 fL (80-100) MEAN CORPUSCULAR HGB 30 pg (26-34) MEAN CORPUSCULAR HGB CONC 33 g/dL (31-37) RED CELL DISTRIBUTION WIDTH 13.8 % (11.6-14.8) PLATELET COUNT 268 K/uL (150-400) NEUTROPHIL % 87.8 H % (50-75) LYMPH % 8.7 L % (25-40) MONO % 3.4 % (3-14) EOSINOPHIL % 0.1 % (0-4) BASOPHIL % 0 % (0-2) CMP: (MIS: 12/23/2016 05:05) ( MsgRcvd 12/23/2016 06:08) Final results Test Result Flag Units (Reference) GLUCOSE 130 H mg/dL (70-110) BUN 10 mg/dL (7-18) CREATININE 0.5 L mg/dL (0.6-1.3) Estimated GFR >60 mL/min Estimated GFR- >60 mL/min Note: Persistent reduction over 3 months in eGFR<60 mL/min/1.73 m2 defines CKD. Patients with eGFR values>=60 mL/min/1.73 m2 may also have CKD if evidence ofpersistent proteinuria. Additional information may be foundat [email or web address]. SODIUM 142 mmol/L (136-145) POTASSIUM 4.5 mmol/L (3.5-5.1) CHLORIDE 107 mmol/L (98-107) CARBON DIOXIDE 26 mmol/L (21-32) CALCIUM 7.8 L mg/dL (8.5-10.1) TOTAL PROTEIN 5.6 L g/dL (6.4-8.2) ALBUMIN 2.9 L g/dL (3.3-5.0) BILIRUBIN, TOTAL 0.2 mg/dL (0.0-1.0) ALKALINE PHOSPHATASE 47 U/L (46-116) AST (SGOT) 14 L U/L (15-37) ALT (SGPT) 24 U/L (12-78) UA-Culture if indicated: (MIS: 12/22/2016 08:40) ( MsgRcvd 12/22/2016 09:21) Final results Test Result Flag Units (Reference) URINE COLOR YELLOW URINE APPEARANCE CLEAR URINE GLUCOSE NEGATIVE (NEGATIVE) URINE BILIRUBIN NEGATIVE (NEGATIVE) URINE KETONE NEGATIVE (NEGATIVE) URINE SPECIFIC GRAVITY 1.015 (1.010-1.030) URINE PH 6.0 (5.0-8.0) URINE PROTEIN NEGATIVE (NEGATIVE) URINE UROBILINOGEN 0.2 EU/dL (0.2-1.0) URINE NITRITE NEGATIVE (NEGATIVE) URINE BLOOD TRACE-INTACT (NEGATIVE) URINE LEUK ESTERASE TRACE (NEGATIVE) URINE RBC NONE SEEN rbc/hpf (0-1) URINE WBC 5-10 wbc/hpf (0-1) URINE EPITHELIAL CELLS 1-3 EPI/hpf (0-5) URINE BACTERIA FEW (1+) (NONE SEEN) URINE COMMENT CULTURE INDICATED URINE CULTURES ARE SET-UP BASED ON THE FOLLOWING CRITERIA:POSITIVE NITRITEPOSITIVE LEUKOCYTE ESTERASEGREATER THAN 10 WHITE BLOOD CELLSMODERATE (2+) OR GREATER BACTERIA CBC w Diff: (MIS: 12/22/2016 07:04) ( MsgRcvd 12/22/2016 07:21) Final results Test Result Flag Units (Reference) WHITE BLOOD COUNT 11.7 H K/uL (4.5-11.5) RED BLOOD COUNT 4.69 M/uL (4.00-5.20) HEMOGLOBIN 14.1 gm/dL (12.0-16.0) HEMATOCRIT 42.6 % (36.0-46.0) MEAN CELL VOLUME 91 fL (80-100) MEAN CORPUSCULAR HGB 30 pg (26-34) MEAN CORPUSCULAR HGB CONC 33 g/dL (31-37) RED CELL DISTRIBUTION WIDTH 13.5 % (11.6-14.8) PLATELET COUNT 288 K/uL (150-400) NEUTROPHIL % 89.5 H % (50-75) LYMPH % 5.0 L % (25-40) MONO % 4.6 % (3-14) EOSINOPHIL % 0.8 % (0-4) BASOPHIL % 0.1 % (0-2) PT with INR: (MIS: 12/22/2016 07:04) ( MsgRcvd 12/22/2016 07:50) Final results Test Result Flag Units (Reference) INR 1.5 H (0.8-1.2) Low Intensity Therapy: INR 1.5-2.0 PT range 18.5-23.1Mod.Intensity Therapy: INR 2.0-3.0 PT range 23.1-31.5High Intensity Therapy: INR 2.5-3.5 PT range 27.4-35.5High Intensity Therapy 2: INR 3.0-4.0 PT range 31.5-39.3 APTT 34 SECONDS (24-34) [id number]: (MIS: 12/22/2016 07:04) ( MsgRcvd 12/22/2016 08:01) Final results Test Result Flag Units (Reference) PROCALCITONIN <0.5 ng/mL (0-0.5) PCT Concentration: Interpretation : Risk/option for action PCT <=0.5 ng/mL : Systemic : Low risk forinfection(sepsis): progression to severeis not likely. : systemic infection.Local bacterial : CAUTION-PCT levelsinfection is : below 0.5 ng/mL do notpossible. : exclude an infection,because localizedinfections (withoutsystemic signs) may beassociated with suchlow levels. If PCT ismeasured very earlyafter a bacterialchallenge (usually <6hours), these valuesmay still be low. Inthis case PCT shouldbe re-assessed 6-24hours later. PCT >0.5 and : Systemic infection: Moderate risk for<= 2 ng/mL : (sepsis) is : progression to severepossible, but : systemic infection.other conditions : The patient should beare known to : closely monitoredelevate PCT. : both clinically andby re-assessing PCTwithin 6-24 hours. PCT > 2 ng/mL : Systemic infection: High risk for(sepsis) is likely: progression to severeunless other : systemic infection.causes are known. : PCT >= 10 ng/mL : Important systemic: High likelihood ofinflammatory : severe sepsis orresponse, almost : septic shock.exclusively due to:severe bacterial :sepsis or septic :shock. : CMP: (MIS: 12/22/2016 07:04) ( MsgRcvd 12/22/2016 07:36) Final results Test Result Flag Units (Reference) GLUCOSE 91 mg/dL (70-110) BUN 15 mg/dL (7-18) CREATININE 0.6 mg/dL (0.6-1.3) Estimated GFR >60 mL/min Estimated GFR- >60 mL/min Note: Persistent reduction over 3 months in eGFR<60 mL/min/1.73 m2 defines CKD. Patients with eGFR values>=60 mL/min/1.73 m2 may also have CKD if evidence ofpersistent proteinuria. Additional information may be foundat [email or web address]. SODIUM 142 mmol/L (136-145) POTASSIUM 4.0 mmol/L (3.5-5.1) CHLORIDE 105 mmol/L (98-107) CARBON DIOXIDE 25 mmol/L (21-32) CALCIUM 8.3 L mg/dL (8.5-10.1) TOTAL PROTEIN 6.7 g/dL (6.4-8.2) ALBUMIN 3.3 g/dL (3.3-5.0) BILIRUBIN, TOTAL 0.3 mg/dL (0.0-1.0) ALKALINE PHOSPHATASE 50 U/L (46-116) AST (SGOT) 21 U/L (15-37) ALT (SGPT) 29 U/L (12-78) LIPASE 91 U/L (73-393) AMYLASE 22 L U/L (25-115) CPK 50 U/L (24-260) TROPONIN I <0.05 L ng/mL (0.00-1.5) TROPONIN REFERENCE RANGE:<0.1 NEGATIVE0.1-1.5 INDETERMINANT>1.5 POSITIVE DIGOXIN 0.5 L ng/mL (0.9-2.0) Blood Culture: (MIS: 12/23/2016 08:00) ( [facility] 12/29/2016 08:21) Final results Is patient on antibiotics? Y If so, list antibiotic: levaquin Test Result Flag Units (Reference) CULTURE, BLOOD NO GROWTH Blood Culture: (MIS: 12/23/2016 08:00) ( [facility] 12/29/2016 08:21) Final results Is patient on antibiotics? Y If so, list antibiotic: levaquin Test Result Flag Units (Reference) CULTURE, BLOOD NO GROWTH MRSA Screen: (MIS: 12/22/2016 16:45) ( [facility] 12/24/2016 11:45) Final results Is patient on antibiotics? Y If so, list antibiotic: LEVOQUIN Test Result Flag Units (Reference) MRSA SCREEN DATE: 12/24/16 MRSA ISOLATED?: NO MRSA ISOLATED MSSA ISOLATED?: NO MSSA (Methacilin Sensitive Staph aureus NOT Isolated) MRSA SCREEN ONLY Culture, Urine: (MIS: 12/22/2016 08:40) ( [facility] 12/24/2016 11:55) Final results Test Result Flag Units (Reference) CULTURE, URINE DATE: 12/24/16 NO SIGNIFICANT ISOLATION: NO SIGNIFICANT ISOLATION PRELIM REPORT: FINAL REPORT Blood Culture: (MIS: 12/22/2016 08:15) ( [facility] 12/27/2016 08:19) Final results Is patient on antibiotics? Y If so, list antibiotic: ZITHROMAX Test Result Flag Units (Reference) CULTURE, BLOOD NO GROWTH Blood Culture: (MIS: 12/22/2016 08:10) ( [facility] 12/25/2016 06:44) Final results Is patient on antibiotics? Y If so, list antibiotic: ZITHROMAX Test Result Flag Units (Reference) CULTURE, BLOOD CALLED TO: PREETI GAN 12/23 -- DATE: 12/25/16 DRAWN FROM:: PRELIM REPORT: FINAL REPORT Since this organism has been isolated from 1 blood culture set only, it may be a contaminant. Please call the lab if sensitivity is required. If a subsequent blood culture set grows this organism, the lab will perform sensitivity -- testing. Results called (FINAL) Person contacted: ACUTE CARE (PATIENT DISCHARGED BUT NO -- PRIMARY ON FILE) Was the result read back? Y DATE: 12/25/16 TIME: 629 -- By: DURAN -- Results called Person contacted: PREETI GAN AC Was the result read back? Y Date: 12/23/16 Time: 0735 -- By: EULOGIO -- ELECTRICAL SIGN WIRER ISOLATED ON DAY:: DAY 1 GROWTH: ISOLATED FROM AEROBIC BOTTLE * . PROGRESS AND PROCEDURES Discussed case with hospitalist, (Joni). Reviewed test results. Agreed upon decision to place in observation. Patient/family counseled. Old medical records reviewed. [facility] Disposition: Admitted. Observation. CLINICAL IMPRESSION Acute exacerbation of COPD. Pneumonia. (Electronically signed by Aiden Cordero MD 12/30/2016 9:13)
--- NOTE | 2016-12-22 08:30 | ED ORDER SUMMARY ---
..... Patient: SHANNON PATEL OrderSheet [facility] VisitID: [id number] [address] [place] [address] 71y, F Registration Date/Time: 12/22/2016 ORDER SHEET Weight: 79.3 kg (stated) Allergies: Beta Adrenergic Blockers, Hydrocodone, Shellfish-derived Products, Vicodin GENERAL ORDERS: Chest 1V Urgent (06:12/22/2016 Brandt TAPIA) (Ack 6:33 [place] Community Relations Representative) (6:45 Adele) Hazardous Substances Engineer (Continuous) (:12/22/2016 Brandt TAPIA) (Ack 6:33 Chemo ER Community Relations Representative) (7:13 JQuivey R.N.) CBC w Diff Urgent (:12/22/2016 Brandt TAPIA) (Ack 6:33 Chemo ER Community Relations Representative) (7:13 JQuivey R.N.) CMP Urgent (:12/22/2016 Brandt TAPIA) (Ack 6:33 [facility] Community Relations Representative) (7:14 JQuivey R.N.) UA-Culture if indicated Urgent (:12/22/2016 Brandt TPAIA) (Ack 6:33 Chemo ER Community Relations Representative) (9:11 MCook R.N.) Amylase Urgent (:12/22/2016 Brandt TAPIA) (Ack 6:33 Chemo ER Community Relations Representative) (7:14 JQuivey R.N.) Lipase Urgent (:12/22/2016 Brandt TAPIA) (Ack 6:33 [facility] Community Relations Representative) (7:14 JQuivey R.N.) CPK Urgent (:12/22/2016 Brandt TAIPA) (Ack 6:33 Chemo ER Community Relations Representative) (7:14 JQuivey R.N.) Troponin-I Urgent (:12/22/2016 Brandt TAPIA) (Ack 6:33 [facility] Community Relations Representative) (7:14 JQuivey R.N.) Oxygen (2 L/min) (NC) (:12/22/2016 Brandt TAPIA) (Ack 6:33 CHagerty ER Community Relations Representative) (7:13 JQuivey R.N.) Pulse oximeter (06:28 12/22/2016 Brandt TAPIA) (Ack 6:33 [facility] Community Relations Representative) (7:14 JQuivey R.N.) EKG - ER Stat (06:28 12/22/2016 Brandt TAPIA) (Ack 6:33 CHagerty ER Community Relations Representative) (6:43 CHategekimana) Digoxin Level Urgent (06:43 12/22/2016 Brandt TAPIA) (Ack 6:51 [facility] Community Relations Representative) (7:14 JQuivey R.N.) PT with INR Urgent (06:43 12/22/2016 Brandt TAPIA) (Ack 6:51 Chemo ER Community Relations Representative) (7:14 JQuivey R.N.) PTT Urgent (06:43 12/22/2016 Brandt TAPIA) (Ack 6:51 [facility] Community Relations Representative) (7:14 JQuivey R.N.) PCT (Procalcitonin) Urgent (07:17 12/22/2016 Brandt TAPIA) (7:25 LMuller) Blood Culture (Yes) (Zithromax) Urgent (07:50 12/22/2016 Brandt TAPIA) (Ack 7:56 LMuller) (8:17 LMuller) MEDICATION ORDERS: IV FLUIDS: IV Saline Lock (06:28 12/22/2016 Brandt TAPIA) (Ack 6:48 JQuivey R.N.) (7:13 JQuivey R.N.) Zofran IV 4 mg (NOW) (07:14 12/22/2016 SyedQuivey R.N. per protocol) (7:41 MCook R.N.) Solu-MEDROL IV 125 mg (NOW) (07:34 12/22/2016 Brandt TAPIA) (7:41 MCook R.N.) Levaquin IV 750 mg/150 mL (NOW) (07:53 12/22/2016 Brandt TAPIA) (9:33 MCook R.N.) ORDER SHEET NOTES: [Electronically signed by Garth Ellis R.N. (10:37 12/22/2016)] [Electronically signed by Aiden Cordero MD (09:13 12/30/2016)] [Electronically locked/signed by Garth Ellis R.N. (10:37 12/22/2016)]
--- NOTE | 2016-12-22 08:30 | ED ORDER SUMMARY ---
..... Patient: SHANNON PATEL OrderSheet [facility] VisitID: [id number] [address] [place] [address] 71y, F Registration Date/Time: 12/22/2016 ORDER SHEET Weight: 79.3 kg (stated) Allergies: Beta Adrenergic Blockers, Hydrocodone, Shellfish-derived Products, Vicodin GENERAL ORDERS: Chest 1V Urgent (06:12/22/2016 Brandt TAPIA) (Ack 6:33 [place] [facility] Drum Plater) (6:45 Adele) Bean Picker Machine Operator (Continuous) (:12/22/2016 Brandt TAPIA) (Ack 6:33 Chemo ER Drum Plater) (7:13 JQuivey R.N.) CBC w Diff Urgent (:12/22/2016 Brandt TAPIA) (Ack 6:33 Chemo ER Drum Plater) (7:13 JQuivey R.N.) CMP Urgent (:12/22/2016 Brandt TAPIA) (Ack 6:33 [place] ER Drum Plater) (7:14 JQuivey R.N.) UA-Culture if indicated Urgent (:12/22/2016 Brandt ATPIA) (Ack 6:33 Chemo ER Drum Plater) (9:11 MCook R.N.) Amylase Urgent (:12/22/2016 Brandt TAPIA) (Ack 6:33 Chemo ER Drum Plater) (7:14 JQuivey R.N.) Lipase Urgent (:12/22/2016 Brandt TAPIA) (Ack 6:33 [place] ER Drum Plater) (7:14 JQuivey R.N.) CPK Urgent (:12/22/2016 Brandt TAPIA) (Ack 6:33 Chemo ER Drum Plater) (7:14 JQuivey R.N.) Troponin-I Urgent (:12/22/2016 Brandt TAPIA) (Ack 6:33 [place] ER Drum Plater) (7:14 JQuivey R.N.) Oxygen (2 L/min) (NC) (:12/22/2016 Brandt TAPIA) (Ack 6:33 CHagerty ER Drum Plater) (7:13 JQuivey R.N.) Pulse oximeter (06:28 12/22/2016 Brandt TAPIA) (Ack 6:33 CHagerty ER Drum Plater) (7:14 JQuivey R.N.) EKG - ER Stat (06:28 12/22/2016 Brandt TAPIA) (Ack 6:33 CHagerty ER Drum Plater) (6:43 CHategekimana) Digoxin Level Urgent (06:43 12/22/2016 Brandt TAPIA) (Ack 6:51 [place] ER Drum Plater) (7:14 JQuivey R.N.) PT with INR Urgent (06:43 12/22/2016 Brandt TAPIA) (Ack 6:51 Chemo ER Drum Plater) (7:14 JQuivey R.N.) PTT Urgent (06:43 12/22/2016 Brandt TAPIA) (Ack 6:51 [place] ER Drum Plater) (7:14 JQuivey R.N.) PCT (Procalcitonin) Urgent (07:17 12/22/2016 Brandt TAPIA) (7:25 LMuller) Blood Culture (Yes) (Zithromax) Urgent (07:50 12/22/2016 Brandt TAPIA) (Ack 7:56 LMuller) (8:17 LMuller) MEDICATION ORDERS: IV FLUIDS: IV Saline Lock (06:28 12/22/2016 Brandt TAPIA) (Ack 6:48 JQuivey R.N.) (7:13 JQuivey R.N.) Zofran IV 4 mg (NOW) (07:14 12/22/2016 SyedQuivey R.N. per protocol) (7:41 MCook R.N.) Solu-MEDROL IV 125 mg (NOW) (07:34 12/22/2016 Brandt TAPIA) (7:41 MCook R.N.) Levaquin IV 750 mg/150 mL (NOW) (07:53 12/22/2016 Brandt TAPIA) (9:33 MCook R.N.) ORDER SHEET NOTES: [Electronically signed by Garth Ellis R.N. (10:37 12/22/2016)] [Electronically signed by Aiden Cordero MD (09:13 12/30/2016)] [Electronically locked/signed by Garth Ellis R.N. (10:37 12/22/2016)]
--- NOTE | 2016-12-22 08:30 | ED NURSING NOTES ---
Clinical Report - Nurses [facility] [address] [place] [address] 12/22/2016 6:08 Patient: SHANNON PATEL TRIAGE Triage time 06:12. Acuity: LEVEL 3. Chief Complaint: COUGH, NAUSEA and ABDOMINAL PAIN. 06:21. Alert. SEPSIS SCREEN: Sepsis Screen. Negative (no infection suspected/documented). --06:21 Epi Ashby R.N. 06:12 12/22/16. BP: 161/98. HR: 87. RR: 18. O2 saturation: 96% on room air. Temp: 98.7 F (oral). Pain level now: 06/23. --06:21 Epi Ashby R.N. Weight: 79.3 kg stated. Height/Length: 64 inches Per Patient. BMI: 30. --06:18 Epi Ashby R.N. Medications Advair Diskus Inhalation (Aerosol Powder Breath Activated 250-50 mcg/dose) 1 puff, 2x a day. Atorvastatin Calcium Oral (Tablet 20 mg) 1 tablet, daily. Azithromycin Oral (Tablet 500 mg) 1 tablet, Mon, Wed, Fri. Carvedilol Phosphate ER Oral (Capsule Extended Release 24 Hour 10 mg) 25mg, 2xday. Citalopram Hydrobromide Oral (Tablet 40 mg) 1 tablet. Digoxin Oral (Tablet 125 mcg) 1 tablet, daily. DULoxetine HCl Oral (Capsule Delayed Release Particles 60 mg) 1 capsule. Estradiol Oral (Tablet 1 mg) 1 tablet. Fluticasone Furoate Nasal 50mcg, qd. Furosemide Oral (Tablet 20 mg) 1 tablet, daily. HydrOXYzine HCl Oral (Tablet 25 mg) 1 tablet, 4x a day as needed. Lisinopril Oral (Tablet 5 mg) 1-1/2 tablets, at bedtime. MedroxyPROGESTERone Acetate Oral (Tablet 2.5 mg) 1 tablet, daily. Naproxen Oral (Tablet 500 mg) 1 tablet, 2x a day. Omeprazole Oral (Tablet Delayed Release 20 mg) 1 tablet, daily. Percocet Oral (Tablet 5-325 mg) 1-2, 3x a day as needed. Tramadol HCL Oral (Tablet 50 mg) 1-1/2 tablets, 3x a day. Ventolin HFA Inhalation (Aerosol Solution 108 (90 Base) mcg/act) 2 puff, q4hrs. Xanax Oral (Tablet 0.25 mg) 1 tablet, as needed. Xarelto Oral (Tablet 20 mg) 1 tablet. --06:17 Epi Ashby R.N. PredniSONE Oral 40 mg, daily. --06:17 Epi Ashby R.N. Medication/allergy information source: the patient. --06:21 Epi Ashby R.N. Allergies Beta Adrenergic Blockers. Hydrocodone. Shellfish-derived Products. Vicodin. --06:17 Epi Ashby R.N. History Arrived by EMS, and unaccompanied. Primary physician (Wendy). This started today. Onset. (at 0130). ( Patient was seen here on 12-05-16,and 12-20-16, pt thinks her nausea is caused by the Zithromax). Treatment WINDOW SHADE ESTIMATOR: (Prednisone , Zithromax). PAST MEDICAL HX: The patient is post-menopausal. SOCIAL HX: Former smoker, end date 2006. No alcohol use or drug use. No infectious disease exposure. ABUSE ASSESSMENT: No report of abuse. FALL RISK ASSESSMENT: Fall risk assessment completed. No fall risk identified. NUTRITIONAL RISK ASSESSMENT: The nutritional risk assessment revealed no deficiencies. FUNCTIONAL ASSESSMENT: Functional assessment: no impairments noted. LEARNING NEEDS ASSESSMENT: The learning needs assessment revealed no barriers. SKIN INTEGRITY ASSESSMENT: Skin integrity risk assessment completed. No skin integrity risk identified. --06:21 Epi Ashby R.N. PROBLEMS: Pneumonia. Anxiety Reaction. Medication Refill. Bronchitis. Atrial Fibrillation. Hyperlipidemia. COPD - Chronic Obstructive Pulmonary Disease. Hypertension. --06:18 Epi Ashby R.N. ADDITIONAL SURGERIES: Dilatation & Curettage. Tonsillectomy. --06:18 Epi Ashby R.N. Interventions ID band on patient. To treatment room. --06:21 Epi Ashby R.N. PHYSICAL ASSESSMENT 06:21. To room via stretcher. Patient gowned. GENERAL / NEURO / PSYCH: Alert. Oriented X 4. HEENT: Mucous membranes are pink. RESPIRATORY: Respirations not labored. SKIN: Skin intact. Skin is warm and dry. Normal skin turgor. --06:21 Epi Ashby R.N. NURSING PROGRESS NOTES 06:21. Head of bed elevated. Two patient identifiers checked. Call light placed in reach. Side rails up x 2. Bed placed in lowest position. Brakes of bed on. Patient ready for evaluation- chart flagged. --06:21 Epi Ashby R.N. EKG time: (0641 AM). EKG was ordered, performed by a tech and shown to the ED physician. --06:44 Layla Torres 06:52 Layla division order technician assisting pt use BSC and obtaining urine sample. --06:52 Epi Ashby R.N. 07:08 12/22/2016 Site #1 started via IV in the left antecubital space with an 20g angiocath, with aseptic technique and good blood return; one attempt. Blood drawn: rainbow set. Labeled in the presence of the patient and sent to the lab. Saline lock flushed with 10 mL saline. --07:13 Epi Ashby R.N. 07:00. Care transferred and report received. --07:46 Garth Ellis R.N. 07:04 Patient unable to void. --07:15 Epi Ashby R.N. 07:06. director skills, pulse oximeter and NIBP monitor placed on patient; monitor alarms on. --07:15 Epi Ashby R.N. Oxygen administered by nasal cannula at 2 liters. --07:15 Epi Ashby R.N. 07:24. Care transferred and report given (César WANG). --07:24 Epi Ashby R.N. 07:41 12/22/2016 Zofran (Ondansetron HCl) IVP 4 mg given. via site #1. Allergies verified and confirmed 5 rights. IV patency established. IV site checked: no pain, redness, or swelling. IV flushed thoroughly pre- and post-medication administration. --07:41 Garth Ellis R.N. 07:41 12/22/2016 SOLU-MEDROL (MethylPREDNISolone Sodium Succ) IVP 125 mg given. via site #1. Allergies verified and confirmed 5 rights. IV patency established. IV site checked: no pain, redness, or swelling. IV flushed thoroughly pre- and post-medication administration. IVP given by RN. --07:41 Garth Ellis R.N. 08:41 12/22/16. BP: 153/98. HR: 86. RR: 16. O2 saturation: 100% on nasal cannula at 2 liters/minute. Temp: 97.5 F. --08:42 Garth Ellis R.N. Two patient identifiers checked. Call light placed in reach. Side rails up x 2. Bed placed in lowest position. Brakes of bed on. ( Pt reports her nausea is slightly improved post Zofran. Reporting some gassy/cramping pain to abdomen, reports diarrhea this AM.). --08:43 Garth Ellis R.N. Checked patient name and birthdate: family confirmed urine collected with return of yellow-colored clear urine; sample sent to lab for urinalysis. Specimen labeled in the presence of the patient. --08:44 Garth Ellis R.N. 09:33 12/22/2016 Started 750 mg of Levaquin (Levofloxacin) IVPB in bag #1 150 mL; at 100 mL/hr via site #1 via IV pump. Allergies verified and confirmed 5 rights. IV patency established site checked: no pain, redness, or swelling. --09:33 Garth Ellis R.N. 09:36 12/22/2016 Zofran (Ondansetron HCl) IVP 4 mg given. via site #1. Allergies verified and confirmed 5 rights. IV patency established. IV site checked: no pain, redness, or swelling. IV flushed thoroughly pre- and post-medication administration. IVP given by RN. --09:36 Garth Ellis R.N. ( discussed admission with patient and pt's daughter. Pt still c/o nausea. 2nd dose of Zofran given. Started IV Levaquin.). --09:39 Garth Ellis R.N. ( Pt to bedside commode without assistance steady on her feet.). --10:06 Asaf Calloway R.N. ( Pt back in bed call light in reach no needs at this time). --10:16 Asaf Calloway R.N. Care transferred and report given. ( to Florence ÁLVAREZ on Acute Care). --10:23 Garth Ellis R.N. Reassessment after medication administered. She is calm. Overall patient status is the same- she states feels the same. GI / : The patient reports nausea. --10:23 Garth Ellis R.N. 10:35 12/22/2016 Site #[address] upon admission; patent, no pain and no signs of infection or infiltration (Patient admitted with IV Levaquin infusing as ordered.). --10:36 Garth Ellis R.N. DISPOSITION / DISCHARGE 10:26 12/22/16. BP: 128/94. HR: 100. RR: 18. O2 saturation: 94% at 2 liters/minute. Temp: 97.6 F. --10:27 Garth Ellis R.N. 10:34 12/22/16. Departure time: 10:34 Dec 22 2016. Admitted to Acute Care (10:34 Dec 22 2016). Transported via stretcher by transport team with IV and O2. --10:35 Garth Ellis R.N. Locked/Released at 12/22/2016 10:37 by Garth Ellis R.N.
--- NOTE | 2016-12-22 08:30 | ED CLINICAL REPORT ---
Clinical Report - Physicians/Mid Levels [facility] [address] [place] [address] 12/22/2016 6:08 Patient: SHANNON PATEL Time Seen: 06:26. Arrived- By ambulance. Historian- patient and EMS personnel. HISTORY OF PRESENT ILLNESS Chief Complaint: DYSPNEA and HISTORY OF CHRONIC OBSTRUCTIVE PULMONARY DISEASE. This started about 3 weeks ago and is still present. It was gradual in onset and has been constant and waxing/waning. The dyspnea is described as moderate. The patient has had yellow sputum, a cough and dyspnea on exertion. No chest pain, calf pain or foot swelling. Recent medical care: The patient was seen recently at this facility. Seen for similar symptoms. Evaluation/treatment: x-rays and medication prescribed. Diagnosis: chronic obstructive pulmonary disease and pneumonia. REVIEW OF SYSTEMS The patient has had mild abdominal pain ("Sore"). The pain is described as located in the upper abdomen. She has had moderate nausea (she attributes this to the Zithromax.). All systems otherwise negative, except as recorded above. PAST HISTORY Problems: Pneumonia. Anxiety Reaction. Medication Refill. Bronchitis. Atrial Fibrillation. Hyperlipidemia. COPD - Chronic Obstructive Pulmonary Disease. Hypertension. Additional Surgeries: Dilatation & Curettage. Tonsillectomy. Medications: PredniSONE Oral 40 mg, daily. Advair Diskus Inhalation (Aerosol Powder Breath Activated 250-50 mcg/dose) 1 puff, 2x a day. Atorvastatin Calcium Oral (Tablet 20 mg) 1 tablet, daily. Azithromycin Oral (Tablet 500 mg) 1 tablet, Mon, Wed, Fri. Carvedilol Phosphate ER Oral (Capsule Extended Release 24 Hour 10 mg) 25mg, 2xday. Citalopram Hydrobromide Oral (Tablet 40 mg) 1 tablet. Digoxin Oral (Tablet 125 mcg) 1 tablet, daily. DULoxetine HCl Oral (Capsule Delayed Release Particles 60 mg) 1 capsule. Estradiol Oral (Tablet 1 mg) 1 tablet. Fluticasone Furoate Nasal 50mcg, qd. Furosemide Oral (Tablet 20 mg) 1 tablet, daily. HydrOXYzine HCl Oral (Tablet 25 mg) 1 tablet, 4x a day as needed. Lisinopril Oral (Tablet 5 mg) 1-1/2 tablets, at bedtime. MedroxyPROGESTERone Acetate Oral (Tablet 2.5 mg) 1 tablet, daily. Naproxen Oral (Tablet 500 mg) 1 tablet, 2x a day. Omeprazole Oral (Tablet Delayed Release 20 mg) 1 tablet, daily. Percocet Oral (Tablet 5-325 mg) 1-2, 3x a day as needed. Tramadol HCL Oral (Tablet 50 mg) 1-1/2 tablets, 3x a day. Ventolin HFA Inhalation (Aerosol Solution 108 (90 Base) mcg/act) 2 puff, q4hrs. Xanax Oral (Tablet 0.25 mg) 1 tablet, as needed. Xarelto Oral (Tablet 20 mg) 1 tablet. Allergies: Beta Adrenergic Blockers. Hydrocodone. Shellfish-derived Products. Vicodin. SOCIAL HISTORY Former smoker. ADDITIONAL NOTES The nursing notes have been reviewed. PHYSICAL EXAM Vital Signs: 12/22/2016 06:12 BP: 161/98. HR: 87. RR: 18. O2 saturation: 96%. Temp: 98.7 F. Pain level now: 8/10. Have been reviewed. Appearance: Alert. Eyes: Pupils equal, round and reactive to light. ENT: Pharynx normal. Uvula midline. Neck: Normal inspection. No jugular venous distention. Neck supple. CVS: Abnormal rhythm, which is irregularly irregular. Respiratory: Prolonged expirations. Decreased air movement. Rhonchi present in the left lung base posteriorly. No wheezes. Abdomen: Soft and nontender. No organomegaly. Back: Normal inspection. Skin: Skin warm and dry. Normal skin color. Normal skin turgor. Extremities: Extremities exhibit normal ROM. No calf tenderness. No lower extremity edema. LABS, X-RAYS, AND EKG EKG: Rate: 90. Atrial fibrillation. Non-specific ST segment / T wave abnormalities. EKG unchanged when compared with prior EKG. (30 Oct 2016). Chest X-ray: (IMPRESSION: 1. Slight progression of mild left basilar infiltrate 2. Stable cardiomegaly). The X-rays were interpreted by the radiologist and contemporaneously by me. Laboratory Tests: CBC w Diff: (MIS: 12/24/2016 05:15) ( MsgRcvd 12/24/2016 06:15) Final results Test Result Flag Units (Reference) WHITE BLOOD COUNT 7.8 K/uL (4.5-11.5) RED BLOOD COUNT 4.39 M/uL (4.00-5.20) HEMOGLOBIN 13.1 gm/dL (12.0-16.0) HEMATOCRIT 40.0 % (36.0-46.0) MEAN CELL VOLUME 91 fL (80-100) MEAN CORPUSCULAR HGB 30 pg (26-34) MEAN CORPUSCULAR HGB CONC 33 g/dL (31-37) RED CELL DISTRIBUTION WIDTH 13.9 % (11.6-14.8) PLATELET COUNT 292 K/uL (150-400) NEUTROPHIL % 87.4 H % (50-75) LYMPH % 9.4 L % (25-40) MONO % 3.2 % (3-14) EOSINOPHIL % 0 % (0-4) BASOPHIL % 0 % (0-2) CMP: (MIS: 12/24/2016 05:15) ( MsgRcvd 12/24/2016 06:41) Final results Test Result Flag Units (Reference) GLUCOSE 143 H mg/dL (70-110) BUN 11 mg/dL (7-18) CREATININE 0.5 L mg/dL (0.6-1.3) Estimated GFR >60 mL/min Estimated GFR- >60 mL/min Note: Persistent reduction over 3 months in eGFR<60 mL/min/1.73 m2 defines CKD. Patients with eGFR values>=60 mL/min/1.73 m2 may also have CKD if evidence ofpersistent proteinuria. Additional information may be foundat www.[email or web address]. SODIUM 135 L mmol/L (136-145) POTASSIUM 4.3 mmol/L (3.5-5.1) CHLORIDE 104 mmol/L (98-107) CARBON DIOXIDE 24 mmol/L (21-32) CALCIUM 7.8 L mg/dL (8.5-10.1) TOTAL PROTEIN 5.8 L g/dL (6.4-8.2) ALBUMIN 2.8 L g/dL (3.3-5.0) BILIRUBIN, TOTAL 0.3 mg/dL (0.0-1.0) ALKALINE PHOSPHATASE 44 L U/L (46-116) AST (SGOT) 18 U/L (15-37) ALT (SGPT) 18 U/L (12-78) CBC w Diff: (MIS: 12/23/2016 05:05) ( MsgRcvd 12/23/2016 05:45) Final results Test Result Flag Units (Reference) WHITE BLOOD COUNT 5.4 # K/uL (4.5-11.5) RED BLOOD COUNT 4.30 M/uL (4.00-5.20) HEMOGLOBIN 13.0 gm/dL (12.0-16.0) HEMATOCRIT 39.3 % (36.0-46.0) MEAN CELL VOLUME 91 fL (80-100) MEAN CORPUSCULAR HGB 30 pg (26-34) MEAN CORPUSCULAR HGB CONC 33 g/dL (31-37) RED CELL DISTRIBUTION WIDTH 13.8 % (11.6-14.8) PLATELET COUNT 268 K/uL (150-400) NEUTROPHIL % 87.8 H % (50-75) LYMPH % 8.7 L % (25-40) MONO % 3.4 % (3-14) EOSINOPHIL % 0.1 % (0-4) BASOPHIL % 0 % (0-2) CMP: (MIS: 12/23/2016 05:05) ( MsgRcvd 12/23/2016 06:08) Final results Test Result Flag Units (Reference) GLUCOSE 130 H mg/dL (70-110) BUN 10 mg/dL (7-18) CREATININE 0.5 L mg/dL (0.6-1.3) Estimated GFR >60 mL/min Estimated GFR- >60 mL/min Note: Persistent reduction over 3 months in eGFR<60 mL/min/1.73 m2 defines CKD. Patients with eGFR values>=60 mL/min/1.73 m2 may also have CKD if evidence ofpersistent proteinuria. Additional information may be foundat [email or web address]. SODIUM 142 mmol/L (136-145) POTASSIUM 4.5 mmol/L (3.5-5.1) CHLORIDE 107 mmol/L (98-107) CARBON DIOXIDE 26 mmol/L (21-32) CALCIUM 7.8 L mg/dL (8.5-10.1) TOTAL PROTEIN 5.6 L g/dL (6.4-8.2) ALBUMIN 2.9 L g/dL (3.3-5.0) BILIRUBIN, TOTAL 0.2 mg/dL (0.0-1.0) ALKALINE PHOSPHATASE 47 U/L (46-116) AST (SGOT) 14 L U/L (15-37) ALT (SGPT) 24 U/L (12-78) UA-Culture if indicated: (MIS: 12/22/2016 08:40) ( MsgRcvd 12/22/2016 09:21) Final results Test Result Flag Units (Reference) URINE COLOR YELLOW URINE APPEARANCE CLEAR URINE GLUCOSE NEGATIVE (NEGATIVE) URINE BILIRUBIN NEGATIVE (NEGATIVE) URINE KETONE NEGATIVE (NEGATIVE) URINE SPECIFIC GRAVITY 1.015 (1.010-1.030) URINE PH 6.0 (5.0-8.0) URINE PROTEIN NEGATIVE (NEGATIVE) URINE UROBILINOGEN 0.2 EU/dL (0.2-1.0) URINE NITRITE NEGATIVE (NEGATIVE) URINE BLOOD TRACE-INTACT (NEGATIVE) URINE LEUK ESTERASE TRACE (NEGATIVE) URINE RBC NONE SEEN rbc/hpf (0-1) URINE WBC 5-10 wbc/hpf (0-1) URINE EPITHELIAL CELLS 1-3 EPI/hpf (0-5) URINE BACTERIA FEW (1+) (NONE SEEN) URINE COMMENT CULTURE INDICATED URINE CULTURES ARE SET-UP BASED ON THE FOLLOWING CRITERIA:POSITIVE NITRITEPOSITIVE LEUKOCYTE ESTERASEGREATER THAN 10 WHITE BLOOD CELLSMODERATE (2+) OR GREATER BACTERIA CBC w Diff: (MIS: 12/22/2016 07:04) ( MsgRcvd 12/22/2016 07:21) Final results Test Result Flag Units (Reference) WHITE BLOOD COUNT 11.7 H K/uL (4.5-11.5) RED BLOOD COUNT 4.69 M/uL (4.00-5.20) HEMOGLOBIN 14.1 gm/dL (12.0-16.0) HEMATOCRIT 42.6 % (36.0-46.0) MEAN CELL VOLUME 91 fL (80-100) MEAN CORPUSCULAR HGB 30 pg (26-34) MEAN CORPUSCULAR HGB CONC 33 g/dL (31-37) RED CELL DISTRIBUTION WIDTH 13.5 % (11.6-14.8) PLATELET COUNT 288 K/uL (150-400) NEUTROPHIL % 89.5 H % (50-75) LYMPH % 5.0 L % (25-40) MONO % 4.6 % (3-14) EOSINOPHIL % 0.8 % (0-4) BASOPHIL % 0.1 % (0-2) PT with INR: (MIS: 12/22/2016 07:04) ( MsgRcvd 12/22/2016 07:50) Final results Test Result Flag Units (Reference) INR 1.5 H (0.8-1.2) Low Intensity Therapy: INR 1.5-2.0 PT range 18.5-23.1Mod.Intensity Therapy: INR 2.0-3.0 PT range 23.1-31.5High Intensity Therapy: INR 2.5-3.5 PT range 27.4-35.5High Intensity Therapy 2: INR 3.0-4.0 PT range 31.5-39.3 APTT 34 SECONDS (24-34) [id number]: (MIS: 12/22/2016 07:04) ( MsgRcvd 12/22/2016 08:01) Final results Test Result Flag Units (Reference) PROCALCITONIN <0.5 ng/mL (0-0.5) PCT Concentration: Interpretation : Risk/option for action PCT <=0.5 ng/mL : Systemic : Low risk forinfection(sepsis): progression to severeis not likely. : systemic infection.Local bacterial : CAUTION-PCT levelsinfection is : below 0.5 ng/mL do notpossible. : exclude an infection,because localizedinfections (withoutsystemic signs) may beassociated with suchlow levels. If PCT ismeasured very earlyafter a bacterialchallenge (usually <6hours), these valuesmay still be low. Inthis case PCT shouldbe re-assessed 6-24hours later. PCT >0.5 and : Systemic infection: Moderate risk for<= 2 ng/mL : (sepsis) is : progression to severepossible, but : systemic infection.other conditions : The patient should beare known to : closely monitoredelevate PCT. : both clinically andby re-assessing PCTwithin 6-24 hours. PCT > 2 ng/mL : Systemic infection: High risk for(sepsis) is likely: progression to severeunless other : systemic infection.causes are known. : PCT >= 10 ng/mL : Important systemic: High likelihood ofinflammatory : severe sepsis orresponse, almost : septic shock.exclusively due to:severe bacterial :sepsis or septic :shock. : CMP: (MIS: 12/22/2016 07:04) ( MsgRcvd 12/22/2016 07:36) Final results Test Result Flag Units (Reference) GLUCOSE 91 mg/dL (70-110) BUN 15 mg/dL (7-18) CREATININE 0.6 mg/dL (0.6-1.3) Estimated GFR >60 mL/min Estimated GFR- >60 mL/min Note: Persistent reduction over 3 months in eGFR<60 mL/min/1.73 m2 defines CKD. Patients with eGFR values>=60 mL/min/1.73 m2 may also have CKD if evidence ofpersistent proteinuria. Additional information may be foundat www.kidney.org. SODIUM 142 mmol/L (136-145) POTASSIUM 4.0 mmol/L (3.5-5.1) CHLORIDE 105 mmol/L (98-107) CARBON DIOXIDE 25 mmol/L (21-32) CALCIUM 8.3 L mg/dL (8.5-10.1) TOTAL PROTEIN 6.7 g/dL (6.4-8.2) ALBUMIN 3.3 g/dL (3.3-5.0) BILIRUBIN, TOTAL 0.3 mg/dL (0.0-1.0) ALKALINE PHOSPHATASE 50 U/L (46-116) AST (SGOT) 21 U/L (15-37) ALT (SGPT) 29 U/L (12-78) LIPASE 91 U/L (73-393) AMYLASE 22 L U/L (25-115) CPK 50 U/L (24-260) TROPONIN I <0.05 L ng/mL (0.00-1.5) TROPONIN REFERENCE RANGE:<0.1 NEGATIVE0.1-1.5 INDETERMINANT>1.5 POSITIVE DIGOXIN 0.5 L ng/mL (0.9-2.0) Blood Culture: (MIS: 12/23/2016 08:00) [facility] Final results Is patient on antibiotics? Y If so, list antibiotic: levaquin Test Result Flag Units (Reference) CULTURE, BLOOD NO GROWTH Blood Culture: (MIS: 12/23/2016 08:00) ( [facility] 12/29/2016 08:21) Final results Is patient on antibiotics? Y If so, list antibiotic: levaquin Test Result Flag Units (Reference) CULTURE, BLOOD NO GROWTH MRSA Screen: (MIS: 12/22/2016 16:45) [facility] 11[facility]45[facility] Final results Is patient on antibiotics? Y If so, list antibiotic: LEVOQUIN Test Result Flag Units (Reference) MRSA SCREEN DATE: 12/24/16 MRSA ISOLATED?: NO MRSA ISOLATED MSSA ISOLATED?: NO MSSA (Methacilin Sensitive Staph aureus NOT Isolated) MRSA SCREEN ONLY Culture, Urine: (MIS: 12/22/2016 08:40) ( [facility] 12/[facility] 11:55) Final results Test Result Flag Units (Reference) CULTURE, URINE DATE: 12/24/16 NO SIGNIFICANT ISOLATION: NO SIGNIFICANT ISOLATION PRELIM REPORT: FINAL REPORT Blood Culture: (MIS: 12/22/2016 08:15) ( [facility] 12/27/2016 08:19) Final results Is patient on antibiotics? Y If so, list antibiotic: ZITHROMAX Test Result Flag Units (Reference) CULTURE, BLOOD NO GROWTH Blood Culture: (MIS: 12/22/2016 08:10) ( [facility] [place] 12/25/2016 06:44) Final results Is patient on antibiotics? Y If so, list antibiotic: ZITHROMAX Test Result Flag Units (Reference) CULTURE, BLOOD CALLED TO: PREETI GAN 12/23 -- DATE: 12/25/16 DRAWN FROM:: PRELIM REPORT: FINAL REPORT Since this organism has been isolated from 1 blood culture set only, it may be a contaminant. Please call the lab if sensitivity is required. If a subsequent blood culture set grows this organism, the lab will perform sensitivity -- testing. Results called (FINAL) Person contacted: ACUTE CARE (PATIENT DISCHARGED BUT NO -- PRIMARY ON FILE) Was the result read back? Y DATE: 12/25/16 TIME: 629 -- By: DURAN -- Results called Person contacted: PREETI GAN AC Was the result read back? Y Date: 12/23/16 Time: 0735 -- By: EULOGIO -- KEYSEATING MACHINE SET UP OPERATOR ISOLATED ON DAY:: DAY 1 GROWTH: ISOLATED FROM AEROBIC BOTTLE * . PROGRESS AND PROCEDURES Discussed case with hospitalist, (Joni). Reviewed test results. Agreed upon decision to place in observation. Patient/family counseled. Old medical records reviewed. [facility] Disposition: Admitted. Observation. CLINICAL IMPRESSION Acute exacerbation of COPD. Pneumonia. (Electronically signed by Aiden Cordero MD 12/30/2016 9:13)
--- NOTE | 2016-12-22 10:23 | History & Physical Report ---
Information Source Information Source: Self, Child Reliability: Good History Chief Complaint cough, shortness of breath, diarrhea History of Present Illness Patient is a 71 year old female presenting with a 4 week history of shortness of breath and cough. Patient was discharged from [facility] in october. Patient felt well when she was discharged however she still had lingering cough. Patient continued to take her medication which was providing occasional relief however her cough continued to get worse. Patient came to the ER twice in the month of november both times she was discharged. Patient on her last visit on 12/18 was discharged with azitrhomycin and a steroid taper. Despite this patient continued to have shortness of breath, and then started to develop diarrhea. Patients medications were doing a suboptimal job of keeping her symptoms at bay. Patient then came to the hospital since her symptoms were not resolving and getting worse. Patient is currently stable and will be admitted. Patient History 1. COPD exacerbation 2. Fibrillation, atrial 3. CHF (congestive heart failure) 4. Pneumonia 5. Diarrhea Social History - Pt currently lives at home with her daughter. 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 She does not smoke drink, or use illicit substances. Family History Family history was reviewed; no changes noted. Advance Directive Durable POA-Healthcare (full code ) Medications and Allergies Medications Current Medications Sig/Cody Start time Last Medication Dose Route Stop Time Status Admin Enoxaparin Sodium 40 MG QAM 12/23 899 CAN SC Furosemide 20 MG DAILY 12/23 0900 AC PO Levofloxacin/Dextrose 150 ML DAILY 12/23 0800 AC IV Pantoprazole Sodium 40 MG DAILY@0600 12/23 0600 AC Sesquihydrate PO Estradiol 1 MG QHS 12/22 2100 AC PO Medroxyprogesterone 2.5 MG QHS 12/22 2100 AC Acetate PO Rivaroxaban 20 MG QPM 12/22 1800 AC PO Digoxin 125 MCG 1400 12/22 1400 AC 12/22 PO 1350 Lactobacillus 1 TAB TID 12/22 1400 AC 12/22 PO 1350 Methylprednisolone 60 MG Q8HR 12/22 1400 AC 12/22 Sodium Succinate IV 1350 Patient Own See Dose Q4H PRN 12/22 1400 AC Medication Insts (1) IN Albuterol/Ipratropium 3 ML Q6H PRN 12/22 1330 AC IN Sucralfate 1 GM ACHS 12/22 1231 AC 12/22 PO 1355 Oxycodone/ See Dose TID PRN 12/22 914 AC 12/22 Acetaminophen Insts (2) PO 1116 Tramadol HCl See Dose Q4H PRN 12/22 914 AC Insts (3) PO Lisinopril 7.5 MG DAILY 12/22 911 AC 12/22 PO 1115 Duloxetine HCl 60 MG DAILY 12/22 909 AC 12/22 PO 1115 Carvedilol 25 MG BIDWC 12/22 908 AC 12/22 PO 1115 Sodium Chloride 1,000 ML ASDIRECTED 12/22 09 AC IV 12/23 1900 Dose Instructions: (1)Patient Own Medication: ALBUTEROL MDI 2 PUFF (2)Oxycodone/Acetaminophen: 1-2 TAB (3)Tramadol HCl: 25-50 MG Allergies Coded Allergies: Levofloxacin (From LEVAQUIN) (Severe, AGGRAVATED A FIB-MD AWARE DOSE STARTED IN ED 12/22 MONITORING 12/22/16) Shellfish Allergy (Severe, MOUTH AND THROAT SWELLING 10/31/16) Beta Adrenergic Blockers (Intermediate, PROFOUND FATIGUE 12/22/16) Hydrocodone (From VICODIN) (Intermediate, GETS ITCHY AFTER COUPLE DAYS 10/31/16) Review of Systems Constitutional Malaise. Denies: Fever, Chills, Sweats, Weakness, Other. Eyes Denies: Pain, Vision Change, Conjunctival Inflammation, Eyelid Inflammation, Redness, Other. ENT Denies: Ear Pain, Ear Discharge, Nose Pain, Nasal Discharge, Nasal Congestion, Mouth Pain, Mouth Swelling, Throat Pain, Throat Swelling, Other. Respiratory Cough, SOB w/exertion, Wheezing. Denies: Hemoptysis, Pleuritic Pain, Sputum. Cardiovascular Denies: Chest Pain, Palpitations, Orthopnea, PND, Edema, Light-headedness, Other. Gastrointestinal Diarrhea. Denies: Nausea, Vomiting, Abdominal Pain, Constipation, Melena, Hematochezia, Other. Genitourinary Denies: Dysuria, Frequency, Incontinence, Hematuria, Retention, Other. Musculoskeletal Denies: Neck Pain, Shoulder Pain, Arm Pain, Back Pain, Hand Pain, Leg Pain, Foot Pain, Other. Skin Denies: Rash, Lesions, Jaundice, Bruising, Other. Neurological Denies: Weakness, Numbness, Incoordination, Change in speech, Confusion, Seizures, Other. Physical Exam Vital Signs / I&Os Vital Signs Date Time Temp Pulse Resp B/P Pulse O2 O2 Flow FiO2 Ox Delivery Rate 12/22 1419 98.8 83 15 139/96 94 Room Air 12/22 1350 88 12/22 1115 80 12/22 1115 170/95 12/22 1055 98.8 94 16 134/107 95 Nasal 2.0 Cannula 12/22 1048 2.0 General Appearance Alert, Oriented X3, No acute distress HEENT Normal exam, PERRLA, EOMI, Moist mucous membranes Lungs Clear to auscultation, Normal air movement Cardiovascular Regular rate and rhythm, Normal S1 and S2, No murmurs, gallops, rubs Abdomen Normal exam, No tenderness, No guarding, No rebound Extremities No edema, Normal pulses, No tenderness, Strength = upper ext's, Strength = lower ext's Skin No Rashes Assessment and Plan Problem List 1. Diarrhea Plan - currently no episodes in the hospital - most likely adverse reaction to antibiotics - if recurs will obtain stool studies 2. Pneumonia Plan - pt has evidence of pneumonia on chest xray which was in the process of being treated - will treat with levaquin given adverse history of azithromycin 3. Essential hypertension Plan - currently controlled - c/w home medications 4. CHF (congestive heart failure) Plan - chronic condition - not exacerbation noted - will continue with diuresis and gdt 5. Fibrillation, atrial Plan - pt seen to be in atrial fibrillation - currently rate controlled - given levaquins reactivity will monitor patient on telemetry
[2016-12-22 10:55] VITALS: BP 134/107
[2016-12-22 11:15] VITALS: BP 170/95
[2016-12-22 14:19] VITALS: BP 139/96
[2016-12-22 17:39] VITALS: BP 122/62
[2016-12-22 22:20] VITALS: BP 148/90
[2016-12-23] VITALS (7 sets, daily range): BP systolic 148–161; BP diastolic 86–111
--- NOTE | 2016-12-23 18:46 | Progress Note ---
Subjective General Pt is doing well and claims to have improved significantly. Patient has been complaining of back pain which is not being treated appropriately. Constitutional Denies: Fever, Chills, Sweats, Weakness, Malaise, Other. Eyes Denies: Pain, Vision Change, Conjunctival Inflammation, Eyelid Inflammation, Redness, Other. ENT Denies: Ear Pain, Ear Discharge, Nose Pain, Nasal Discharge, Nasal Congestion, Mouth Pain, Mouth Swelling, Throat Pain, Throat Swelling, Other. Respiratory Cough, SOB w/exertion. Denies: Dry, Wheezing, Hemoptysis, Pleuritic Pain, Sputum, Other. Cardiovascular Denies: Chest Pain, Palpitations, Orthopnea, PND, Edema, Light-headedness, Other. Gastrointestinal Denies: Nausea, Vomiting, Abdominal Pain, Diarrhea, Constipation, Melena, Hematochezia, Other. Musculoskeletal Back Pain. Denies: Neck Pain, Shoulder Pain, Arm Pain, Hand Pain, Leg Pain, Foot Pain, Other. Skin Denies: Rash, Lesions, Jaundice, Bruising, Other. Physical Exam Vital Signs / I&Os Vital Signs Date Time Temp Pulse Resp B/P Pulse O2 O2 Flow FiO2 Ox Delivery Rate 12/23 1807 68 12/23 1602 154/96 12/23 1540 Room Air 0.0 12/23 1450 97.5 84 16 161/111 95 Room Air 0.0 12/23 1345 89 12/23 1052 98.2 97 16 156/92 95 Room Air 12/23 0938 88 12/23 0758 Room Air 0.0 12/23 0654 98.4 95 20 149/109 92 Room Air 12/23 0215 98.8 102 15 155/97 92 Room Air 12/23 0015 Room Air 12/22 2220 98.8 93 14 148/90 92 Room Air I&O 12/22 0800 12/22 1600 12/23 0000 Intake Total 435 1024 Output Total 100 475 Balance 335 549 General Appearance Alert, Oriented X3, No acute distress HEENT Atraumatic, PERRLA, Moist mucous membranes Lungs - poor air exchange, however improved from the day prior , - productive cough Neck Supple, No JVD Cardiovascular Regular rate and rhythm, Normal S1 and S2 Abdomen Soft, No tenderness Extremities No clubbing, No edema, Strength = upper ext's, Strength = lower ext' s Skin No Rashes Psych/Mental Status Mood normal LAB Results Laboratory Tests 12/23 0505 Chemistry Plasma Sodium (136 - 145 mmol/L) 142 Plasma Potassium (3.5 - 5.1 mmol/L) 4.5 Plasma Chloride (98 - 107 mmol/L) 107 CO2 (Enzymatic) (21 - 32 mmol/L) 26 BUN (7 - 18 mg/dL) 10 Creatinine (0.6 - 1.3 mg/dL) 0.5 Est GFR ( Amer) (mL/min) >60 Est GFR (Non-Af Amer) (mL/min) >60 Glucose (70 - 110 mg/dL) 130 Plasma Calcium (8.5 - 10.1 mg/dL) 7.8 Total Bilirubin (0.0 - 1.0 mg/dL) 0.2 AST (15 - 37 U/L) 14 ALT (12 - 78 U/L) 24 Alkaline Phosphatase (46 - 116 U/L) 47 Total Protein (6.4 - 8.2 g/dL) 5.6 Albumin (3.3 - 5.0 g/dL) 2.9 Hematology WBC (4.5 - 11.5 K/uL) 5.4 RBC (4.00 - 5.20 M/uL) 4.30 Hgb (12.0 - 16.0 gm/dL) 13.0 Hct (36.0 - 46.0 %) 39.3 MCV (80 - 100 fL) 91 MCH (26 - 34 pg) 30 RDW (11.6 - 14.8 %) 13.8 Neut % (Auto) (50 - 75 %) 87.8 Lymph % (Auto) (25 - 40 %) 8.7 Towner % (Auto) (3 - 14 %) 3.4 Eos % (Auto) (0 - 4 %) 0.1 Baso % (Auto) (0 - 2 %) 0 Plt Count, EDTA (150 - 400 K/uL) 268 PUBS MCHC (31 - 37 g/dL) 33 Microbiology Date/Time Procedure - Status Source Growth 12/23 K Blood Culture - ORD BLOOD 12/23 [facility] Blood Culture - ORD BLOOD Assessment and Plan Problem List 1. Pneumonia Plan - will c/w levaquin - already the patient has symptomatic improvement - will continue with same regimen 2. Diarrhea Plan - resolved 3. Essential hypertension Plan - established - under control - will continue with home meds 4. 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 COPD exacerbation Plan - much improved than yesterday - will continue with steroid regimen - will continue with breathing treatments prn
[2016-12-24 02:27] VITALS: BP 154/92
[2016-12-24 07:44] VITALS: BP 154/104
[2016-12-24 10:28] VITALS: BP 144/91
[2016-12-24] MEDS ORDERED: LEVAQUIN750 MG PO (13:30)
[2016-12-24] MEDS ORDERED: DELTASONE20 MG PO (13:32)
--- NOTE | 2016-12-24 13:35 | Provider's Discharge Care Plan ---
Problem, Goal, Plan Problem List 1. COPD exacerbation Instructions: Take meds as directed, - take steroid taper as directed 2. Pneumonia Instructions: Take meds as directed, - take levaquin for the remaining days 3. Diarrhea Instructions: - take the carafate as instructed to avoid diarrhea and nausea
--- NOTE | 2016-12-24 13:56 | Discharge Summary ---
Discharge Summary Report Admit Date 12/22/16 Discharge Date 12/24/16 Admission Diagnosis pneumonia and diarrhea Discharge Diagnosis pneumonia, chf exacerbation, and diarrhea Brief History Patient is a 71 year old female presenting with a 4 week history of shortness of breath and cough. Patient was discharged from [facility] in october. Patient felt well when she was discharged however she still had lingering cough. Patient continued to take her medication which was providing occasional relief however her cough continued to get worse. Patient came to the ER twice in the month of november both times she was discharged. Patient on her last visit on 12/18 was discharged with azitrhomycin and a steroid taper. Despite this patient continued to have shortness of breath, and then started to develop diarrhea. Patients medications were doing a suboptimal job of keeping her symptoms at bay. Patient then came to the hospital since her symptoms were not resolving and getting worse. Patient is currently stable and will be admitted. Hospital Course Patient was admitted for pneumonia symptoms that were not resolving despite treatment. Patient additionally was noted to have gastric distress from the antibiotics she was on. Patient was continued on a different antimicrobial agent and carafate and monitored for any gastic distres. Pts diarrhea and stomach pain stopped with the plan mentioned above. Patient was additionally placed on steroids due to the poor air exchange she was experiencing. Patient did well over the course of the next two days, and her symptoms began to alleviate. Patients shortness of breath was gone to the point where she could manage by herself. It was at this point we decided that the patient could be discharged to home. General Appearance Alert, Oriented X3, No acute distress HEENT PERRLA, Mucous membran moist/pink Lungs Clear to auscultation Cardiovascular Normal S1, Normal S2 Abdomen Soft, No tenderness Skin No Rashes Neurological Normal gait, Normal speech, Sensation intact, Cranial nerves 3-12 NL Discharge Instructions/Meds - take medications as prescribed - take steroid taper as prescribed - continue with home medications - follow up [facility] pmd as an out patient
[2016-12-24 14:43] VITALS: BP 133/90
--- NOTE | 2016-12-30 09:14 | ED DISCHARGE INSTRUCTIONS ---
Patient: SHANNON PATEL General Instructions [facility] VisitID: [id number] [address] [place] [address] 71y, F Registration Date/Time: 12/22/2016 Acute exacerbation of COPD. Pneumonia. (Electronically signed by Aiden Cordero MD 12/30/2016 9:13)
--- NOTE | 2016-12-30 09:14 | ED MAR SUMMARY ---
..... Medication Administration Record [facility] [address] [place] [address] Patient: SHANNON PATEL Visit ID: [id number] 71y, F Weight: 79.3 kg Height/Length: 64 in BMI: 30 ALLERGIES: Beta Adrenergic Blockers, Hydrocodone, Shellfish-derived Products, Vicodin Given 07:41 12/22/2016 Garth Ellis R.N. Medication Administered: ZOFRAN [IVP] (ONDANSETRON HCL), Dose: 4 mg IVP, Site: #1 left AC. Medication Ordered: Zofran IV 4 mg (NOW). Given 07:41 12/22/2016 Garth Ellis R.N. Medication Administered: SOLU-MEDROL [IVP] (METHYLPREDNISOLONE SODIUM SUCC), Dose: 125 mg IVP, Site: #1 left AC. Medication Ordered: Solu-MEDROL IV 125 mg (NOW). Start 09:33 12/22/2016 Garth Ellis R.N. Medication Administered: LEVAQUIN [IVPB] (LEVOFLOXACIN), Dose: 750 mg IVPB, Rate: 100 mL/hr, Dispensed: 150 mL bag, Site: #1 left AC. Medication Ordered: Levaquin IV 750 mg/150 mL (NOW). Given 09:36 12/22/2016 Garth Ellis R.N. Medication Administered: ZOFRAN [IVP] (ONDANSETRON HCL), Dose: 4 mg IVP, Site: #1 left AC. Medication Ordered: Zofran IV 4 mg (NOW).
--- NOTE | 2016-12-30 09:14 | ED MAR SUMMARY ---
..... Medication Administration Record [facility] [address] [place] [address] Patient: SHANNON PATEL Visit ID: [id number] 71y, F Weight: 79.3 kg Height/Length: 64 in BMI: 30 ALLERGIES: Beta Adrenergic Blockers, Hydrocodone, Shellfish-derived Products, Vicodin Given 07:41 12/22/2016 Garth Ellis R.N. Medication Administered: ZOFRAN [IVP] (ONDANSETRON HCL), Dose: 4 mg IVP, Site: #1 left AC. Medication Ordered: Zofran IV 4 mg (NOW). Given 07:41 12/22/2016 Garth Ellis R.N. Medication Administered: SOLU-MEDROL [IVP] (METHYLPREDNISOLONE SODIUM SUCC), Dose: 125 mg IVP, Site: #1 left AC. Medication Ordered: Solu-MEDROL IV 125 mg (NOW). Start 09:33 12/22/2016 Garth Ellis R.N. Medication Administered: LEVAQUIN [IVPB] (LEVOFLOXACIN), Dose: 750 mg IVPB, Rate: 100 mL/hr, Dispensed: 150 mL bag, Site: #1 left AC. Medication Ordered: Levaquin IV 750 mg/150 mL (NOW). Given 09:36 12/22/2016 Garth Elils R.N. Medication Administered: ZOFRAN [IVP] (ONDANSETRON HCL), Dose: 4 mg IVP, Site: #1 left AC. Medication Ordered: Zofran IV 4 mg (NOW).
--- NOTE | 2016-12-30 09:14 | ED MED RECONCILIATION SUMMARY ---
Patient: SHANNON PATEL Medication Reconciliation Report [facility] VisitID: [id number] [address] [place] [address] 71y, F Registration Date/Time: 12/22/2016 Weight: 79.3 kg Height/Length: 64 in. BMI: 30.0 ALLERGIES: Beta Adrenergic Blockers, Hydrocodone, Shellfish-derived Products, Vicodin The patient's Home Medications are listed below: THE FOLLOWING MEDICATIONS NEED TO BE RECONCILED: Advair Diskus Inhalation (250-50 mcg/dose) 1 puff, 2x a day Atorvastatin Calcium Oral (20 mg) 1 tablet, daily Azithromycin Oral (500 mg) 1 tablet, Mon, Wed, Fri Carvedilol Phosphate ER Oral (10 mg) 25mg, 2xday Citalopram Hydrobromide Oral (40 mg) 1 tablet Digoxin Oral (125 mcg) 1 tablet, daily DULoxetine HCl Oral (60 mg) 1 capsule Estradiol Oral (1 mg) 1 tablet Fluticasone Furoate Nasal 50mcg, qd Furosemide Oral (20 mg) 1 tablet, daily HydrOXYzine HCl Oral (25 mg) 1 tablet, 4x a day Lisinopril Oral (5 mg) 1-1/2 tablets, at bedtime MedroxyPROGESTERone Acetate Oral (2.5 mg) 1 tablet, daily Naproxen Oral (500 mg) 1 tablet, 2x a day Omeprazole Oral (20 mg) 1 tablet, daily Percocet Oral (5-325 mg) 1-2, 3x a day PredniSONE Oral 40 mg, daily Tramadol HCL Oral (50 mg) 1-1/2 tablets, 3x a day Ventolin HFA Inhalation (108 (90 Base) mcg/act) 2 puff, q4hrs Xanax Oral (0.25 mg) 1 tablet Xarelto Oral (20 mg) 1 tablet The source(s) of the original Home Medication information: patient The following Medications were given to the patient in the Emergency Department: Zofran [IVP] IVP 4 mg, administered: 12/22/2016 7:41:00 AM SOLU-MEDROL [IVP] IVP 125 mg, administered: 12/22/2016 7:41:00 AM Levaquin [IVPB] IVPB bolus 0, then 750 mg 100 mL/hr, administered: 12/22/2016 9:33:00 AM Zofran [IVP] IVP 4 mg, administered: 12/22/2016 9:36:00 AM The following Medications were prescribed to the patient: None.
--- NOTE | 2016-12-30 09:14 | ED DISCHARGE INSTRUCTIONS ---
Patient: SHANNON PATEL General Instructions [facility] VisitID: [id number] [address] [place] [address] 71y, F Registration Date/Time: 12/22/2016 Acute exacerbation of COPD. Pneumonia. (Electronically signed by Aiden Cordero MD 12/30/2016 9:13)
--- NOTE | 2016-12-30 09:14 | ED MED RECONCILIATION SUMMARY ---
Patient: SHANNON PATEL Medication Reconciliation Report [facility] VisitID: [id number] [address] [place] [address] 71y, F Registration Date/Time: 12/22/2016 Weight: 79.3 kg Height/Length: 64 in. BMI: 30.0 ALLERGIES: Beta Adrenergic Blockers, Hydrocodone, Shellfish-derived Products, Vicodin The patient's Home Medications are listed below: THE FOLLOWING MEDICATIONS NEED TO BE RECONCILED: Advair Diskus Inhalation (250-50 mcg/dose) 1 puff, 2x a day Atorvastatin Calcium Oral (20 mg) 1 tablet, daily Azithromycin Oral (500 mg) 1 tablet, Mon, Wed, Fri Carvedilol Phosphate ER Oral (10 mg) 25mg, 2xday Citalopram Hydrobromide Oral (40 mg) 1 tablet Digoxin Oral (125 mcg) 1 tablet, daily DULoxetine HCl Oral (60 mg) 1 capsule Estradiol Oral (1 mg) 1 tablet Fluticasone Furoate Nasal 50mcg, qd Furosemide Oral (20 mg) 1 tablet, daily HydrOXYzine HCl Oral (25 mg) 1 tablet, 4x a day Lisinopril Oral (5 mg) 1-1/2 tablets, at bedtime MedroxyPROGESTERone Acetate Oral (2.5 mg) 1 tablet, daily Naproxen Oral (500 mg) 1 tablet, 2x a day Omeprazole Oral (20 mg) 1 tablet, daily Percocet Oral (5-325 mg) 1-2, 3x a day PredniSONE Oral 40 mg, daily Tramadol HCL Oral (50 mg) 1-1/2 tablets, 3x a day Ventolin HFA Inhalation (108 (90 Base) mcg/act) 2 puff, q4hrs Xanax Oral (0.25 mg) 1 tablet Xarelto Oral (20 mg) 1 tablet The source(s) of the original Home Medication information: patient The following Medications were given to the patient in the Emergency Department: Zofran [IVP] IVP 4 mg, administered: 12/22/2016 7:41:00 AM SOLU-MEDROL [IVP] IVP 125 mg, administered: 12/22/2016 7:41:00 AM Levaquin [IVPB] IVPB bolus 0, then 750 mg 100 mL/hr, administered: 12/22/2016 9:33:00 AM Zofran [IVP] IVP 4 mg, administered: 12/22/2016 9:36:00 AM The following Medications were prescribed to the patient: None.
== END 2016-12-24 16:30 | disposition home or self-care (01) ==
LOC: ED SRH 06:07 → ACUTE2 SRH 08:38 → TRANS SRH 08:38 → ACUTE2 SRH 10:33
PROVIDERS: ADMIT Emergency Medicine
DX: J44.0 Chronic obstructive pulmonary disease with (acute) lower respiratory infection (principal); J18.9 Pneumonia, unspecified organism; J44.1 Chronic obstructive pulmonary disease with (acute) exacerbation; K52.1 Toxic gastroenteritis and colitis; T36.3X5A Adverse effect of macrolides, initial encounter; I11.0 Hypertensive heart disease with heart failure; I50.9 Heart failure, unspecified; I48.91 Unspecified atrial fibrillation; M47.9 Spondylosis, unspecified
CPT/HCPCS: 29230; 29243; 29244; 29263; 83526; 85241; 90004; 90065; 90074; 90100; 90469; 90616; 91672; 92132; 92235; 92530; 92610; 93004; 93020; 94001; 94060; 95059

== ENCOUNTER 2017-01-31 10:28 | Outpatient (CLI) | payer OTHER, MEDICARE ==
[~2017-01-31 10:28] MED LIST changes: +DELTASONE20 MG PO; +LEVAQUIN750 MG PO
--- NOTE | 2017-01-31 11:01 | DIAGNOSTIC IMAGING REPORT ---
PROCEDURE: MG BILATERAL SCREENING W/CAD INDICATION: Screening. Family history breast carcinoma (aunt, cousin) TECHNIQUE: Bilateral CC and MLO digital views. COMPARISON: Compared to 01/06/2016, 12/06/2014, and 01/31/2017. FINDINGS: Computer-aided detection applied. Mildly dense. No change. IMPRESSION: 1. Negative mammogram. RESULT CODE: 1- Negative. A. A negative report should not delay biopsy if a dominant or clinically suspicious mass is present. 10-15% of cancers are not identified by x-ray. B. A negative report may reinforce clinical impression. C. Adenosis and dense breasts may obscure an underlying neoplasm. D. False positive reports average 6-10%. E.. A yearly screening mammogram is recommended. A reminder letter will be scheduled.
== END 2017-01-31 23:00 ==
LOC: MAM SRH 10:28
DX: Z12.31 Encounter for screening mammogram for malignant neoplasm of breast (principal); Z80.3 Family history of malignant neoplasm of breast

== ENCOUNTER 2017-02-21 14:49 | Outpatient (CLI) | payer OTHER, MEDICARE | END 2017-02-21 23:00 | LOC: LAB SRH 14:49 | DX: I48.2 Chronic atrial fibrillation (principal); R00.0 Tachycardia, unspecified; I10 Essential (primary) hypertension | CPT/HCPCS: 90047; 90074 ==

== ENCOUNTER 2017-02-28 10:08 | Outpatient (CLI) | payer OTHER, MEDICARE ==
--- NOTE | 2017-02-28 12:49 | DIAGNOSTIC IMAGING REPORT ---
REFERRING PHYSICIAN/PROVIDER: Stevie Aparicio Jr, MD CONSULTING VOLLEYBALL COMMENTATOR: Stevie Aparicio Jr MD INDICATION: CARDIOMYOPATHY Procedure: A two-dimensional transthoracic echocardiogram with color flow and Doppler was performed. The study quality was technically adequate. The patient was in atrial fibrillation with controlled ventricular rate during the exam. Left Ventricle: The left ventricle is normal in size. There is mild concentric left ventricular hypertrophy. Left ventricular systolic function is normal without focal wall motion abnormalities. The ejection fraction is estimated to be 55-60%. Compared to the prior exam, the left ventricular function is improved. Diastolic function could not be accurately assessed due to atrial fibrillation. Right Ventricle: The right ventricle is normal in size and function. Atria: The left atrium is mildly dilated. The right atrium is mild to moderately dilated. The interatrial septum is intact with no evidence for an atrial septal defect. Mitral Valve: There is mild mitral annular calcification. The mitral valve leaflets appear borderline thickened, but open well. There is trace mitral regurgitation. Compared to the prior echo study, there has been a decrease in the severity of mitral regurgitation. Aortic Valve: The aortic valve is normal in structure and function. No aortic regurgitation is present. Tricuspid Valve: The tricuspid valve is normal in structure and function. There is trace tricuspid regurgitation. The right ventricular systolic pressure is estimated at 30 mmHg assuming a right atrial pressure of 3 mm Hg. Compared to the prior echo exam, there has been a decrease in the severity of pulmonary hypertension. Pulmonic Valve: The pulmonic valve is not well seen, but is grossly normal. There is a trace or physiologic amount of pulmonic regurgitation. There is no other significant valvular heart disease. Great Vessels: The aortic root is normal size. The aortic arch is normal in size. The IVC is of normal diameter and collapses greater than 50% with a sniff. This suggests a low right atrial pressure of 3 mm Hg. Pericardium/ Pleura There is no pericardial effusion. IMPRESSION: There is mild concentric left ventricular hypertrophy. Left ventricular systolic function is normal without focal wall motion abnormalities. The ejection fraction is estimated to be 55-60%. Compared to the prior exam, the left ventricular function is improved. The right ventricle is normal in size and function. The right ventricular systolic pressure is estimated at 30 mmHg assuming a right atrial pressure of 3 mm Hg. Compared to the prior echo exam, there has been a decrease in the severity of pulmonary hypertension. The left atrium is mildly dilated. The right atrium is mild to moderately dilated. There is trace mitral regurgitation. Compared to the prior echo study, there has been a decrease in the severity of mitral regurgitation. There is no other significant valvular heart disease.
== END 2017-02-28 23:00 ==
LOC: US SRH 10:08
DX: I42.9 Cardiomyopathy, unspecified (principal); R00.0 Tachycardia, unspecified

== ENCOUNTER 2017-05-19 12:23 | Outpatient (CLI) | payer OTHER, MEDICARE ==
--- NOTE | 2017-05-19 14:33 | DIAGNOSTIC IMAGING REPORT ---
PROCEDURE: XR MAJOR JT INJ OR ASPIRATION INDICATION: LEFT HIP and knee PAIN TECHNIQUE: Written informed consent was obtained from the patient prior to the procedure. Risks discussed included but were not limited to bleeding, infection, injury to adjacent structures, pain, temporary anesthesia, and allergic reaction. 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 The patient does not appear to have had contrast administration in the recent past. The procedure will be performed without iodinated contrast It was agreed to proceed. Supine position on the fluoroscopy table with the left leg slightly internally rotated. Preliminary fluoroscopic imaging demonstrated medial femoral acetabular joint space loss and mild femoral head marginal spur formation. An appropriate skin entry site was chosen and marked. The skin was prepped and draped in the usual sterile fashion. Skin and subcutaneous tissue was anesthetized thoroughly with 1% lidocaine. Under intermittent fluoroscopic guidance, a 22 gauge needle was directed into left femoral acetabular joint. Upon reaching the joint space, the inner cannula of the needle was removed and a small amount of joint fluid was aspirated. Intra-articular position was confirmed with a small injection of air which was visible under real time fluoroscopy, as well as aspiration of joint fluid. Subsequently, a 6 ml mixture of 2 ml 1% lidocaine, 2 ml 0.5% bupivacaine, and 2 ml 40 mg/ml Kenalog was injected intra-articular. Two fluoroscopic spot images were acquired documenting the needle in position. Following injection of anesthetic and anti-inflammatory, needle was removed, hemostasis was achieved, the skin was cleansed, and a sterile bandage was applied. The patient was helped off the table. The patient left the radiology department in stable condition with standard post procedure instructions. The patient tolerated the procedure well and there were no immediate complications. COMPARISON: None. FINDINGS: Intra-articular position confirmed with injection of air as well as aspiration of joint fluid. Medial joint space loss suggestive of rheumatoid arthritis. IMPRESSION: 1. Successful fluoroscopic guided therapeutic left hip joint injection.
== END 2017-05-19 23:00 | disposition home or self-care (01) ==
LOC: XR SRH 12:23
PROC: 3E0U33Z Introduction of Anti-inflammatory into Joints, Percutaneous Approach (ICD-10-PCS; principal; 2017-05-19)
PROC: BQ111ZZ Fluoroscopy of Left Hip using Low Osmolar Contrast (ICD-10-PCS; 2017-05-19)
DX: M25.552 Pain in left hip (principal)
CPT/HCPCS: 80222; 82445